=== PATIENT | male | born 1945 | race Caucasian/White ===

== ENCOUNTER 2021-03-08 06:25 | Outpatient (RCR) | payer OTHER, SELFPAY | END 2021-03-17 23:59 | disposition home or self-care (01) | LOC: SPT 06:25 | PROVIDERS: Family Provider Family Medicine; PCP Family Medicine; Referring Provider Physical Medicine & Rehabilitation; Visit Provider Physical Medicine & Rehabilitation | DX: M25.512 Pain in left shoulder (principal); M25.612 Stiffness of left shoulder, not elsewhere classified; G54.0 Brachial plexus disorders; Z98.890 Other specified postprocedural states | CPT/HCPCS: 97110; 97140; 97161 ==

== ENCOUNTER 2021-03-18 06:00 | Outpatient (RCR) | payer OTHER, SELFPAY | END 2021-04-17 23:59 | disposition home or self-care (01) | LOC: SPT 06:00 | PROVIDERS: Family Provider Family Medicine; PCP Family Medicine; Referring Provider Physical Medicine & Rehabilitation; Visit Provider Physical Medicine & Rehabilitation | DX: Z98.890 Other specified postprocedural states (principal); M25.612 Stiffness of left shoulder, not elsewhere classified; G54.0 Brachial plexus disorders | CPT/HCPCS: 97110 ==

== ENCOUNTER → 2022-08-09 14:04 | Outpatient (BNVA) | payer MEDICARE, OTHER, SELFPAY | PROVIDERS: PCP Family Medicine; Visit Provider Family Medicine | DX: R50.9 Fever, unspecified (principal); U07.1 COVID-19 | CPT/HCPCS: 87426 ==

== ENCOUNTER 2023-04-06 20:00 | Outpatient (CLI) | payer OTHER, SELFPAY | END 2023-04-06 20:01 | disposition home or self-care (01) | LOC: SLEEP 04-07 05:34 | PROVIDERS: PCP Clinical Nurse Specialist Adult Health; Visit Provider Family Medicine | DX: G47.33 Obstructive sleep apnea (adult) (pediatric) (principal) | CPT/HCPCS: 95811 ==

== ENCOUNTER 2023-06-16 08:37 | Outpatient (CLI) | payer OTHER, SELFPAY ==
--- NOTE | 2023-06-16 08:50 | FL_ITS ---
WS: [id number] Modified barium swallow, 06/16/2023 Clinical Data: Other dysphagia Comparison: None. Fluoroscopy time: 1min [id number] # of spot films: Findings: The patient ingested the barium and the oral propulsion was normal. There is minimal premature spilla ge. There was a small residue in the vallecula and even less in the piriform sinuses which cleared on swallowing. No aspiration or penetration occurred. The barium tablet was propelled normally from the hypopharynx through the esophagus into the stomach. Impression: Negative modified barium swallow.
== END 2023-06-16 08:38 | disposition home or self-care (01) ==
PROVIDERS: PCP Clinical Nurse Specialist Adult Health; Visit Provider Family Medicine
DX: R13.10 Dysphagia, unspecified (principal)
CPT/HCPCS: 74230; 92611

== ENCOUNTER → 2023-11-22 13:56 | Outpatient (BNVA) | payer OTHER, SELFPAY | PROVIDERS: PCP Clinical Nurse Specialist Adult Health; Referring Provider Family Medicine; Visit Provider Nurse Practitioner Family | DX: L57.0 Actinic keratosis (principal); L30.4 Erythema intertrigo; L60.3 Nail dystrophy; L82.1 Other seborrheic keratosis; L72.0 Epidermal cyst | CPT/HCPCS: 17004; 99214 ==

== ENCOUNTER → 2023-12-06 13:34 | Outpatient (BNVA) | payer OTHER, SELFPAY | PROVIDERS: PCP Clinical Nurse Specialist Adult Health; Visit Provider Podiatrist Foot & Ankle Surgery | DX: L60.8 Other nail disorders | CPT/HCPCS: 99203 ==

== ENCOUNTER → 2024-03-05 08:30 | Outpatient (BNVA) | payer OTHER, SELFPAY | PROVIDERS: PCP Clinical Nurse Specialist Adult Health; Visit Provider Nurse Practitioner Family | DX: D18.01 Hemangioma of skin and subcutaneous tissue (principal); L57.0 Actinic keratosis; D48.5 Neoplasm of uncertain behavior of skin; L57.8 Other skin changes due to chronic exposure to nonionizing radiation | CPT/HCPCS: 11102; 17000; 99213 ==

== ENCOUNTER → 2024-03-13 10:54 | Outpatient (BNVA) | payer OTHER, SELFPAY | PROVIDERS: PCP Clinical Nurse Specialist Adult Health; Referring Provider Family Medicine; Visit Provider Specialist | DX: M25.561 Pain in right knee (principal); L60.8 Other nail disorders; M17.11 Unilateral primary osteoarthritis, right knee; Z68.41 Body mass index [BMI] 40.0-44.9, adult | CPT/HCPCS: 73560; 73565; 99204; 99213 ==

== ENCOUNTER → 2024-07-10 12:05 | Outpatient (BNVA) | payer MEDICARE, OTHER, SELFPAY | PROVIDERS: PCP Clinical Nurse Specialist Adult Health; Visit Provider Specialist | DX: Z01.818 Encounter for other preprocedural examination (principal) | CPT/HCPCS: 36415; 80053; 81001; 85025 ==

== ENCOUNTER → 2024-07-30 08:39 | Outpatient (BNVA) | payer MEDICARE, OTHER, SELFPAY | PROVIDERS: PCP Clinical Nurse Specialist Adult Health; Visit Provider Family Medicine | DX: Z01.818 Encounter for other preprocedural examination (principal) | CPT/HCPCS: 93005 ==

== ENCOUNTER 2024-07-31 16:14 | Outpatient (CLI) | payer OTHER, SELFPAY ==
--- NOTE | 2024-07-31 17:15 | CT_ITS ---
WS: [id number] CT RIGHT knee, noncontrast HISTORY: planning for [facility] RIGHT TOTAL KNEE TECHNIQUE: Protocol for ARLENE total knee replacement has been obtained. This includes axial imaging th rough the RIGHT hip, RIGHT knee and RIGHT ankle. DLP: 953.49 mGy.cm COMPARISON: Radiograph 03/13/2024 Mild narrowing of the RIGHT hip joint. No fractures. No destructive bone lesions. Moderate calcificat ion of the visualized iliac arteries. RIGHT knee: Severe tricompartment joint space narrowing with large marginal osteophytes. Bone upon ena ne in the medial compartment. Large joint effusion. RIGHT ankle: Negative. CT/CT knee RT [facility] [id number] IMPRESSION: CT imaging provided for [facility] robotic total knee replacement.
== END 2024-07-31 16:15 | disposition home or self-care (01) ==
PROVIDERS: PCP Clinical Nurse Specialist Adult Health; Visit Provider Specialist
DX: Z01.818 Encounter for other preprocedural examination (principal); M17.11 Unilateral primary osteoarthritis, right knee; M25.761 Osteophyte, right knee; I70.8 Atherosclerosis of other arteries; M25.461 Effusion, right knee
CPT/HCPCS: 73700

== ENCOUNTER 2024-08-06 10:56 | Observation (INO) | payer OTHER, MEDICARE, SELFPAY ==
--- OUTSIDE RECORDS SUMMARY | 2024-07-24 14:45 | XMS_ITS ---
Author Name Unknown Organization [facility] Address [address] [place] [address] Care Team Providers Care Hospice Fellow Name Role Phone Kenya Hylton MD Primary Care Provider Candice Willett Unavailable [phone] [place], [place] Unavailable Unavailable REASON FOR VISIT colon result Encounters Encounter Location Date Provider Diagnosis [facility] [address] [place] [address] 11/28/2023 Candice Fortune Plan Of Treatment No Information Progress Notes * Jovani GOLDEN RDOB:[birth year] (78 yo M)Acc No.[id number]:11/28/2023 Patient:?Jovani GOLDEN :1945???Age:77 Y???Sex:Male Address:[address] [place] [address] [address], [place] [address] * true * Date:? Generated for Mazin beltran/Bessie/eTransmitting on:?07/24/2024 02:45 PM MULTIPLE WIRE SAWYER
--- OUTSIDE RECORDS SUMMARY | 2024-07-24 14:46 | XMS_ITS ---
Author Name Unknown Organization [facility] Address [address] [place] [address] Care Team Providers Care Computer Hardware Developer Name Role Phone Kenya Hylton MD Primary Care Provider Candice Willett Unavailable [phone] [place], [place] Unavailable Unavailable REASON FOR VISIT R/S colon Encounters Encounter Location Date Provider Diagnosis [facility] [address] [place] [address] 10/10/2023 Candice Fortune Plan Of Treatment No Information Progress Notes * Jovani GOLDEN RDOB:[birth year] (77 yo M)Acc No.[id number]:10/10/2023 Patient:?Jovani Golden :1945???Age:77 Y???Sex:Male Address:[address] [place] [address] [address], [place] [address] * true * Date:? Generated for Mazin beltran/Bessie/eTransmitting on:?07/24/2024 02:46 PM COGNOS DEVELOPER
--- OUTSIDE RECORDS SUMMARY | 2024-07-24 14:46 | XMS_ITS ---
Author Name Unknown Organization [facility] Address [address] [place], [place] [address] Care Team Providers Care Research Clerk Name Role Phone Kenya Hylton MD Primary Care Provider Candice Willett Unavailable [phone] [place], [place] Unavailable Unavailable Allergies Allergen (clinical drug ingredient) Drug/Non Drug Allergy documented on EMR Reaction Allergy Type Onset Date Status amlodipine Amlodipine Unknown Drug Allergy Activ e Substance with sulfonamide structure and antibacterial mechanism of action (substance) Sulfa Antibiotics Unknown Drug Allergy Active REASON FOR VISIT screening colon, hx of colon polyps Medications Medication SIG (Take, Route, Frequency, Duration) Notes Start Date End Date Status Benzonatate 200 MG 1 capsule Orally as needed at night Active Omeprazole 20 MG 1 capsule 30 minutes before morning meal Orally Once a day Active Gabapentin 100 MG as directed Orally 1 tablet in the morning and 2 at night Active Lisinopril 10 MG 1 tablet Orally Once a day Active Rosuvastatin Calcium 20 MG 1/2 tablet Or ally Once a day Active Loratadine 10 MG 1 tablet Orally Once a day Active Aleve 220 MG 1 tablet with food o r milk as needed Orally every 12 hrs Active Vitamin C ER 500 MG 1 tablet Orally Once a day Active Vitamin C-Vitamin D-Zinc - 1 tablet Orally daily Active Social History Tobacco Use: Social History Observation Description Date Details (start date - stop date) Never Smoker NA - NA xTobacco Use/Smoking Question Answer Notes Are you a nonsmoker Encounters Encounter Location Date Provider Diagnosis [facility] [address] [place] [address] 10/19/2023 Candice Fortune Screening for colon cancer Z12.11 Assessments Encounter Date Diagnosis (ICD Code) Assessment Notes Treatment Notes Treatment Clinical Notes 10/19/2023 Screening for colon cancer (ICD-10 - Z12.11) Proceed with high risk screening colonoscopy today. Plan Of Treatment Treatment Notes Assessment Notes Screening for colon cancer Proceed with high risk screening colonoscopy today. Progress Notes * Jovani GOLDEN RDOB:[birth year] (78 yo M)Acc No.[id number]:10/19/2023 History and Physical Patient:?Jovani GOLDEN Provider:?Candice Fortune MD :1945???Age:77 Y???Sex:Male Ravinder e:10/19/2023 Address:[address] [place], [place] [id number] Pcp:Kenya Hylton MD Check Out:08:26 AM MANAGER MOTOR Subjective: * Chief Complaints: * ???1. Screening colon, hx of colon polyps. * HPI: ???::? Mr. Golden is a 77-year-old male patient of Dr. Edmonds presenting today for colonoscopy. Last colonoscopy reportedly in 2018 in [place] with polypectomy and 5-year surveillance. Denies GI complaints. Significant history of father with colon cancer at age 87. * ROS:?General - Multi System:?Constitutional?Denies fever, chills, body aches.?.?Cardiovascular?Denies?chest pain, palpitations or syncope.?Respiratory?Denies shortness of breath.? * Medical History:?Hypertensio n, History of colon polyps, Hyperlipidemia, GERD, Neuropathy. * Surgical History:?tonsillect cory and adenoidectomy 02/1956, left shoulder rotator cuff repair x2 02/2017. * Family History:?Father: dece ased 90 yrs, colon cancer at age 87 myocardial infarction, prostate cancer at age 72.?Mother: 91 yrs, alzheimer's , osteoporosis.? * Social History:?Tobacco Use:?xTobacco Use/Smoking?Are you a?nonsmoker * Medications:?Taking Vitamin C-Vitamin D-Zinc - Tablet 1 tablet Orally daily , Taking Vitamin C ER 500 MG Tablet Extended Release 1 tablet Orally Once a day , Taking Aleve 220 MG Tablet 1 tablet with food or milk as needed Orally every 12 hrs , Taking Loratadine 10 MG Tablet 1 tablet Orally Once a day , Taking Omeprazole 20 MG Capsule Delayed Release 1 capsule 30 minutes before morning meal Orally Once a day , Taking Benzonatate 200 MG Capsule 1 capsule Orally as needed at night , Taking Rosuvastatin Calcium 20 MG Tablet 1/2 tablet Orally Once a day , Taking Lisinopril 10 MG Tablet 1 tablet Orally Once a day , Taking Gabapentin 100 MG Capsule as directed Orally 1 tablet in the morning and 2 at night * Allergies:?Sulfa Antibiotics , Amlodipine. Objective: * Vitals:? * Examination: ???General Examination: ?GENERAL APPEARANCE:?Alert, comfortable, in no acute distress.?HEART:?Regular rate and rhythm..?LUNGS:?Non-labored respirations. Clear bilaterally. Symmetrical..?ABDOMEN:?Normal, Soft, Non-tender, positive bowel sounds.? Assessment: * Assessment: 1.?Screening for colon cance r - Z12.11 (Primary)??? Plan: * Treatment: * Billing Information: * Visit Code:? * Procedure Codes:? * Electronic signature of Jose Fortune MD on 07/24/2024 at 02:45 PM MANAGER MOTOR Sign off status: Pending * Provider:?Candice Fortune MD Date:?0 10/19/2023 Generated for Mazin beltran/Bessie/eTransmitting on:?07/24/2024 02:45 PM MANAGER MOTOR History and Physical Notes * Examination Category Sub-Category Detail Notes General Examination GENERAL APPEARANCE: Alert, c omfortable, in no acute distress HEART: Regular rate and rhy thm. LUNGS: Non-labored respirat ions. Clear bilaterally. Symmetrical. ABDOMEN: Normal, Soft, Non-te nder, positive bowel sounds
--- OUTSIDE RECORDS SUMMARY | 2024-07-24 14:46 | XMS_ITS ---
Author Name JuanVishalley Address [address] [facility] [address] [place] [address] Organization [facility] Address [address] [facility] [address] [place] [address] Care Team Providers Care Roadway Technician Name Role Phone Vishal Martinez Primary Care Physician Vishal Martinez Preferred Provider Allergies and Adverse Reactions Name Reaction Notes SULFA (SULFONAMIDES) amlodipine Medications Active Name Start Date Estimated Completion Date SIG Comments gabapentin 100 mg oral capsule 04/28/2019 tamsulosin 0.4 mg oral capsule 03/20/2019 lisinopril 10 mg oral tablet 02/18/2019 Name Start Date Expiration Date SIG Comments Testosterone Pellet 200 mg 05/22/2019 insert subcutaneousl y q 5-6 months BioTE DIM 06/26/2019 10/24/2019 take one po qd BioTE Mervia 500-SF 06/26/2019 10/24/2019 take 2 capsules qd Discontinued Name Start Date Discontinued Date SIG Comment s CUSTOMS AND BORDER PROTECTION INSPECTOR Thyroid 30 mg oral tablet 05/22/2019 10/15/2019 take 1 tablet (30 mg) by oral route once daily for 30 days Problem List Not available. Vital Signs Date Time BP-Sys(mm[Hg] BP-Adelina(mm[Hg]) HR(bpm) RR(rpm) Temp WT HT HC BMI BSA BMI Percentile O2 Sat(%) 2018 10:06 :00 AM 130 mm[Hg] 80 mm[Hg] 74 {beats}/ min 20 rpm 243 lbs 019 2:17: 00 PM 74 {beats}/ min 16 rpm 233 lbs 67 in 36.4 9 kg/m 2 2.24 m2 2018 9:27: 00 AM 120 mm[Hg] 80 mm[Hg] 227 lbs 67 in 35.5 529 kg/m 2 2.20 62 m2 Social History Name Description Comments Tobacco Never smoker Alcohol Never Use status used: Never History of Procedures Date Ordered Description Order Status 05/02/2019 12:00 AM ASSAY OF ESTRADIOL Reviewed 05/02/2019 12:00 AM ASSAY OF TESTOSTERONE FREE Re viewed 05/02/2019 12:00 AM ASSAY OF TESTOSTERONE TOTAL R eviewed 05/02/2019 12:00 AM ASSAY OF THYROID STIMULATING HORMONE TSH Reviewed 05/02/2019 12:00 AM ASSAY OF THYROXINE TOTAL Revi ewed 05/02/2019 12:00 AM ASSAY OF TRIIODOTHYRONINE T3 FREE Reviewed 05/02/2019 12:00 AM MICROSOMAL ANTIBODIES EACH Re viewed 05/02/2019 12:00 AM COMPREHENSIVE METABOLIC PANEL Reviewed 05/02/2019 12:00 AM 25 HYDROXY INCLUDES FRACTIONS IF PERFORMED Reviewed 05/02/2019 12:00 AM LIPID PANEL Reviewed 05/02/2019 12:00 AM ASSAY OF PROSTATE SPECIFIC AN TIGEN TOTAL Reviewed 05/02/2019 12:00 AM BLOOD COUNT COMPLETE AUTO&AUT O DIFRNTL WBC Reviewed 05/02/2019 12:00 AM CYANOCOBALAMIN VITAMIN B-12 R eviewed 05/22/2019 12:00 AM SUBCUTANEOUS HORMONE PELLET IM PLANTATION Reviewed 06/26/2019 12:00 AM BioTE Meriva 500SF Reviewed 06/26/2019 12:00 AM ASSAY OF ESTRADIOL Reviewed 06/26/2019 12:00 AM BLOOD COUNT COMPLETE AUTO&AUT O DIFRNTL WBC Reviewed 06/26/2019 12:00 AM ASSAY OF TESTOSTERONE FREE Re viewed 06/26/2019 12:00 AM ASSAY OF TESTOSTERONE TOTAL R eviewed 06/26/2019 12:00 AM ASSAY OF PROSTATE SPECIFIC AN TIGEN TOTAL Reviewed Results Summary Date and Description Results 05/02/2019 9:57 AM TRIG 165.0 mg/dLCHOL 244.0 mg/dLLDL CALC 163VLDL 33.0HDL 48RISK 5.08GLUCOSE 98.0 mg/dLBUN 27.0 mg/dLCREAT 0.80 mg/dLNA 140.0 mmol/LK 4.40 mmol/LCL 104.0 mmol/LCO2 25.0 mmol/LCA 9.90 mg/dLANION GAP 11.0BUN/CREAT RATIO 33.70 (calc)OSMO,CALC 285GFR (CKD-EPI) 89.9 mL/minGFR-AFR AM > 120.0TOTAL BILI 0.70 mg/dLAST/SGOT 33 U/LALT/SGPT 35 U/LALK PHOS 66 U/LTP 7.50 g/dLALB 4.60 g/dLGLOB 2.90 g/dLA/G RATIO 1.50 (calc)WBC 7.50 x10E3/uLRBC 4.620 x10E6/uLHGB 15.10 g/dLHCT 45.80 %MCV 99.1MCH 32.70 pgMCHC 33.0 g/dLRDW 13.90 %PLT 228.0 x10E3/uLMPV 9.30 fLNEUT% 64.70 %LYMPH% 22.6 %MONO% 9.20 %EOS% 2.90 %BASO% 0.50 %NEUT# 4.870 x10E3/uLLYMPH# 1.70MONO# 0.70 x10E3/uLEOS# 0.220 x10E3/uLBASO# 0.040 x10E3/uLIMMATURE GRANS% 0.1IMMATURE GRANS# 0.0NRBC/100 WBC 0.0TSH 1.040 uIU/mLB12 728.0 pg/mLTHYROID PEROXIDASE ANTIBODIES 4.0 IU/mLT4 (THYROXINE), TOTAL 7.20 mcg/dLESTRADIOL 35.0 pg/mLPSA, TOTAL 1.20 ng/mLT3, FREE 3.20 pg/mLVITAMIN D,25-OH,TOTAL,IA 35.0 ng/mLTESTOSTERONE, TOTAL, MS 503.0 ng/dLTESTOSTERONE, FREE 60.90 pg/mL 06/26/2019 10:42 AM TESTOSTERONE, TOTAL, MS 992.0 ng/dLTESTOSTERONE, FREE 128.60 pg/mLWBC 7.0 x10E3/uLRBC 4.610 x10E6/uLHGB 14.70 g/dLHCT 47.20 %MCV 102.4MCH 31.90 pgMCHC 31.10 g/dLRDW 14.60 %PLT 231.0 x10E3/uLMPV 9.40 fLNEUT% 55.90 %LYMPH% 26.3 %MONO% 12.90 %EOS% 4.0 %BASO% 0.60 %NEUT# 3.920 x10E3/uLLYMPH# 1.84MONO# 0.90 x10E3/uLEOS# 0.280 x10E3/uLBASO# 0.040 x10E3/uLIMMATURE GRANS% 0.3IMMATURE GRANS# 0.0NRBC/100 WBC 0.0ESTRADIOL 46.0 pg/mL 06/26/2019 11:00 AM PSA, TOTAL 1.10 ng/m L History of Past Illness Name Date of Onset Comments Hypertension Encounter for screening for lipoid disorders May 02 2019 9:33AM Encounter for screening for cardiovascular disor ders May 02 2019 9:33AM Osteoporosis screening May 02 2019 9:33AM Screening for endocrine disorder May 02 2019 9:3 3AM Prostate cancer screening May 02 2019 9:33AM Fatigue May 02 2019 9:33AM bed bug exterminator use of drug May 02 2019 9:33AM Wellness examination May 02 2019 9:33AM Pain in joints May 02 2019 9:33AM Excessive sweating May 02 2019 9:33AM Sleep difficulties May 02 2019 9:33AM Irritability May 02 2019 9:33AM Concentration deficit May 02 2019 9:33AM Decreased muscle strength May 02 2019 9:33AM Hypertension May 02 2019 9:33AM Low serum testosterone May 22 2019 2:17PM Joint pain May 22 2019 2:17PM Fatigue, unspecified type May 22 2019 2:17PM Joint pain Jun 26 2019 10:14AM Low testosterone Jun 26 2019 10:14AM Sleep disturbance Jun 26 2019 10:14AM Decreased energy Jun 26 2019 10:14AM Payers Insurance Name Company Name Plan Name Plan Number Policy Number Policy Group Number Start Date MEDICARE/[employer] MEDICARE [id number] Monday, 2012 [employer] [id number] Sunday, 2017 History of Encounters Visit Date Visit Type Provider 09/13/2019 Supplements Vishal Molina 06/26/2019 Lab Order ONLY Vishal Molina 05/22/2019 BioTE Procedures Vishal Martinez MD 05/02/2019 BioTE Procedures Vishal Martinez MD
--- OUTSIDE RECORDS SUMMARY | 2024-07-24 14:46 | XMS_ITS | Patient Health Record ---
Author Name Unknown Organization [facility] Address [address] [place] [address] Care Team Providers Care Manager Medicare Name Role Phone Kenya Hylton MD Primary Care Provider Karena Candice Heath Unavailable [phone] [place], [place] Unavailable Unavailable Allergies Allergen (clinical drug ingredient) Drug/Non Drug Allergy documented on EMR Reaction Allergy Type Onset Date Status amlodipine Amlodipine Unknown Drug Allergy Activ e Substance with sulfonamide structure and antibacterial mechanism of action (substance) Sulfa Antibiotics Unknown Drug Allergy Active Reason For Referral Reason Screening COLON Referring Provider First Name Lukas Tijerina Referring Provider Last Name [place] Referring Provider [facility] Referred Provider Candice Fortune Referred [facility] [address] [facility] [place] [place] Referred Provider Specialty Gastroentero logy Referral Priority Routine Medications Medication SIG (Take, Route, Frequency, Duration) Notes Start Date End Date Status Benzonatate 200 MG 1 capsule Orally as needed at night Active Omeprazole 20 MG 1 capsule 30 minutes before morning meal Orally Once a day Active Loratadine 10 MG 1 tablet Orally Once a day Active Aleve 220 MG 1 tablet with food o r milk as needed Orally every 12 hrs Active Vitamin C ER 500 MG 1 tablet Orally Once a day Active Vitamin C-Vitamin D-Zinc - 1 tablet Orally daily Active Gabapentin 100 MG as directed Orally 1 tablet in the morning and 2 at night Active Lisinopril 10 MG 1 tablet Orally Once a day Active Rosuvastatin Calcium 20 MG 1/2 tablet Or ally Once a day Active Social History Tobacco Use: Social History Observation Description Date Details (start date - stop date) Never Smoker NA - NA xTobacco Use/Smoking Question Answer Notes Are you a nonsmoker Alcohol Screen (Audit-C) Question Answer Notes Did you have a drink containing alcohol in the p ast year? No Points 0 Interpretation Negative Problems Problem Type SNOMED Code ICD Code Onset Dates Problem Status W/U Status Risk Notes Problem [id number] History of colon polyps (Z86.010) Active confirmed Encounters Encounter Location Date Provider [facility] [address] [place], [place] [address] 10/19/2023 Candice Fortune Screening for colon cancer Z12.11 [facility] [address] [place], [place] [address] 10/10/2023 Candice Fortune [facility] [address] [place] [address] 11/28/2023 Candice Fortune Assessments Encounter Date Diagnosis (ICD Code) Assessment Notes Treatment Notes Treatment Clinical Notes 10/19/2023 Screening for colon cancer (ICD-10 - Z12.11) Proceed with high risk screening colonoscopy today. Plan Of Treatment No Information Insurance Providers Payer Name Payer Address Payer Phone Subscriber Number Group Number Insured Name Patient Relationship to Insured Coverage Start Date Coverage End Date [employer] [address] [place] [phone] [id number] Jovani Golden Self - patient is the insured Medical (General) History Medical History History ICD Code Hypertension History of colon polyps Hyperlipidemia GERD Neuropathy Surgical History Surgery Date(Month/Year) tonsillectomy and adenoidectomy 02/1956 left shoulder rotator cuff repair x2 02/17 017
[2024-08-06] VITALS (13 sets, daily range): BP systolic 115–155; BP diastolic 68–95; PULSE 61–90; RESP 16–20; TEMP 36.2–36.8; O2SAT 90–98; BMI 37.9
[2024-08-06] MEDS: sodium chloride 0.9% 1,000 ML 30 ML IV (06:20)
[2024-08-06] MEDS: acetaminophen 1,000 MG/100 ML PIGGYBACK 400 MG IV ×3 (06:21→20:45)
[2024-08-06] MEDS: CELEcoxib 200 mg Capsule 400 MG PO (06:24)
[2024-08-06] MEDS: gabapentin 300 mg Capsule PO (06:24)
--- NOTE | 2024-08-06 06:50 | P.HPUD_ITS ---
Surgery/Procedure H&P Update DATE OF PROCEDURE: August 06, 2024 DATE H&P PERFORMED: 07/30/24 H&P UPDATE INFORMATION: I have reviewed H&P completed within last 30 days, I have examined patient prior to procedure, No changes to prior documentation and H&P is in [facility] EMR on date indicated PRIMARY INDICATION FOR PROCEDURE: Degenerative osteoarthritis right knee PLANNED PROCEDURE: Operation Date: 08/06/24 07:00 Proposed Procedures p Kartik Robot Total Knee Arthroplasty(Right) - Afshan Sánchez MD Related Problem List Diagnoses (1) Primary osteoarthritis of right knee:
--- NOTE | 2024-08-06 06:53 | PC.NURSE ---
pt prepared for adductor block by placing pt on monitoring for heart rate and O2 sats. pt placed on 2L nasal cannula. time out was performed procedure performed to place block using 30cc 0.5% ropivicaine for post knee replacement pain control
[2024-08-06] MEDS: ceFAZolin 2,000 mg SDV 2000 MG IVP (07:00)
--- NOTE | 2024-08-06 07:03 | ANES.PREANE2 ---
Pre-Anesthetic Assessment Height/Weight: Height 1.7 m Weight 109.769 kg Temp Pulse Resp BP Pulse Ox O2 Del Method 97.2 F L 74 18 148/94 93 Room Air 08/06/24 05:59 08/06/24 05:59 08/06/24 05:59 08/06/24 05:59 08/06/24 05:59 08/06/24 05:59 Operation Date: 08/06/24 07:00 Proposed Procedures p Kartik Robot Total Knee Arthroplasty(Right) - Afshan Sánchez MD Familial anesthetic complications: None Was Beta Mary taken within 24 hours: N/A Was Clonidine taken within 24 hours: N/A Last intake: Intake Last Liquid Date 08/05/24 Last Liquid Time 18:30 Last Solid Date 08/05/24 Last Solid Time 18:30 Social No alcohol and No tobacco Exam alert, oriented x 3, clear to auscultation bilaterally and regular rate & rhythm Pulmonary Sleep Apnea CV/HEM Hypertension Metabolic Hyperlipidemia and Morbid Obesity Anesthetic Plan ASA status: 3 Anesthesia: Regional (specify below) Risk of > 500 ml blood loss (7ml/kg in children): Yes, adequate IV access and fluids planned Medications/Allergies Home Medications Medication Instructions Recorded Confirmed Last Taken Type gabapentin 100 mg capsule See Rx Instructions PO .COMPLEX 12/29/22 08/05/24 07/15/24 Rx #270 caps rosuvastatin 10 mg tablet 10 mg PO DAILY 12/29/22 08/05/24 08/05/24 History tamsulosin 0.4 mg capsule 0.4 mg PO .QHS 12/29/22 08/05/24 08/05/24 History lisinopril 30 mg tablet 30 mg PO DAILY bp #90 tabs 06/25/24 08/05/24 08/05/24 Rx loratadine 10 mg tablet 10 mg PO DAILY 07/30/24 08/05/24 08/05/24 History meloxicam 7.5 mg tablet 7.5 mg PO DAILY 07/30/24 08/05/24 08/01/24 History Allergies Allergy/AdvReac Type Severity Reaction Status Date / Time amlodipine Allergy Unknown Verified 08/05/24 12:58 Sulfa (Sulfonamide Allergy unknown Verified 08/05/24 12:58 Antibiotics) Current Medications Generic Name Dose Route Start Last Admin Trade Name Freq PRN Reason Stop Dose Admin Sodium Chloride 1,000 mls @ 30 mls/hr 08/06/24 06:00 08/06/24 06:20 Sodium Chloride 0.9% IV 08/07/24 05:59 30 mls/hr .Q24H JAIRO Administration PFSH Anesthesia Medical History MACARENA (obstructive sleep apnea) no CPAP yet BPH (benign prostatic hyperplasia) Hyperlipidemia GERD (gastroesophageal reflux disease) Essential hypertension Seasonal allergies Surgical History Hx of shoulder surgery Family History Denies family history of Diabetes CAD (coronary artery disease) Social History Smoking and tobacco/nicotine status: never used tobacco/nicotine Data Anesthesia Cardiac Studies: No Data to Display
--- NOTE | 2024-08-06 07:03 | ANES.PROC ---
Anesthesia Procedures Procedure/Date: 08/06/24 Nerve Block ^: Nerve Block 1: Main Anesthesia: spinal anesthesia block Time Out Performed: Yes Consent: requested by attending/covering physician, from patient, from other, risks and benefits reviewed, patient agrees to proceed and emergency procedure Nerve block location: adductor canal (R) Anesthesia monitors applied: pulse oximetry, EKG, BP cuff and oxygen Nerve block position: supine Anesthetic Used: ropivicaine 0.5% (30 ml) and with decadron (4 mg) Ultrasound used to: recognize landmarks and visualize and ID femerol nerve Nerve Stimulator Used?: No Interscalene/Femoral BLK: 4 stimuplex 21 g needle used for position and inplane approach, visualize local anesthetic spread and no vascular puncture identified Injection: neg aspiration of heme Patient Tolerated Procedure: well Complications: none
[2024-08-06] MEDS: tranexamic acid 1,000 mg/10mL SDV 1000 MG IV (07:40)
[2024-08-06] MEDS: ceFAZolin 1,000 mg SDV 2000 MG IRRIGATION (08:23)
[2024-08-06] MEDS: VANCOMYCIN ADD-Vantage 1,000 MG VIAL 1000 MG XX (08:27)
[2024-08-06] MEDS: BUPivacaine 0.5% INJ 30 mL XX (08:29)
[2024-08-06] MEDS: BUPivacaine liposome 13.3 mg/mL SDV 20 mL 266 MG XX (08:29)
--- NOTE | 2024-08-06 11:17 | XR_ITS ---
WS: [id number] Exam: XR knee RT 1-2V [id number] Date/Time of Exam: 08/06/2024 11:17 AM Reason For Exam: Status post total knee arthroplasty RIGHT total knee prosthesis is in place in satisfactory position. Postoperative changes in the adjace nt soft tissues. XR/XR knee RT 1-2V [id number] IMPRESSION: 1. RIGHT total knee replacement in satisfactory position.
--- NOTE | 2024-08-06 11:20 | PM.OP ---
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 Post-op findings: Significant osteophytes with flexion contracture of approximately 14 degrees and 17 degree varus deformity Procedure done: Right total knee arthroplasty with Kartik guidance Implants: The Shazia total knee system with a size 6 triathlon beaded cruciate retaining femur right, a triathlon titanium tibial component size 6 beaded, a triathlon X3 tibial bearing CS insert size 6x12 mm and a beaded triathlon titanium asymmetric patella size 35 x 10 mm Specimens removed/disposition: Bone, disposed of Pathology: None Surgeon: Afshan Sánchez MD Mender Hand: Rosalinda Haas Mender Hand: Whose services were required for retraction, positioning, intraoperative exposure, and closure Anesthesia: MAC and Spinal (With preoperative adductor block, ASA 3) Estimated blood loss (mL): 330 Tourniquet time (min): 0 (Not utilized) IV fluids (mL): 750 Urine output (mL): 175 Complications: None Findings: Significant varus and flexion contracture. Large osteophytes. Anterior bursitis, prepatellar and prepatellar tendon. Condition: stable Disposition: PACU (Then to floor for postoperative rehabilitation and pain management under observation status) Brief History: This 78-year-old gentleman presented with significant complaints of right knee pain. He had severe varus deformity and flexion contracture as well. After discussion and failure of conservative management, the patient wished to proceed with operative intervention in the form of right total knee arthroplasty. Risks and complications were discussed with him. Consents were signed and questions were answered. Procedure: The patient was brought to the operating theater, and after undergoing spinal anesthesia with MAC, ASA 3, which followed preoperative adductor block, the right lower extremity was prepped with Dura-Prep and draped in usual fashion following placement of a tourniquet high on the leg. The leg was then draped free.? Tourniquet was not elevated throughout the surgical procedure. Prior to commencement of the procedure, a surgical pause was performed, and at the time of the surgical pause, we confirmed the site and side of surgery. Additionally, we confirmed the appropriate and timely administration of preoperative antibiotics, Ancef 2 g.? The availability of equipment was confirmed, and the patient's identity was verbalized as well. Following the surgical pause, an incision was made centering over the patella continuing proximally and distally as necessary to allow access to the knee joint. Dissection continued through skin and soft tissues using a scalpel. Hemostasis was obtained using electrocautery. The skin incision was followed by a median parapatellar arthrotomy. The leg was extended and the patella was able to be displaced laterally.? Appropriate arrays and markers were placed in appropriate position for use of the Kartik.? Preoperative planning had been accomplished and was discussed in detail with the [facility] technical service representative.? Intraoperative mapping of the femur and tibia was accomplished after the arrays were placed.? Internal markers were also placed.? Once we had accomplished the Kartik mapping, we began the appropriate resections for placement of the prosthesis.? The plan was for a cruciate retaining left total knee arthroplasty. Once appropriate mapping had been accomplished retraction was established using manual retraction by surgical technicians and also the Kartik leg positioner and retractors.? The knee was evaluated.? There was significant osteoarthritic change as well as a significant flexion contracture and severe varus deformity.? Appropriate bone resection was accomplished using the Kartik.? The femur was sized to a size 6.? Following femoral cuts, attention was directed to the tibia.? Osteophytes were removed prior to this portion of the procedure.? We had performed a medial release at the beginning of the procedure to allow for placement of the array.? Proximal tibia was evaluated, and it was felt that appropriate size for the tibia was a size 6.? Tray was noted to fit nicely with good coverage.? Rim fit was accomplished with the size 6. A trial reduction was accomplished after osteophytes have been removed as well as the medial and lateral menisci.? We had removed the anterior cruciate ligament at the beginning of the case and preserved the posterior cruciate ligament.? Trial reduction was accomplished with a size 6 femoral cruciate retaining component, a size 6 tibial tray and a size 6 CS tibial bearing insert which was 9 mm. We increased this to a size 11 mm for trial and actual implant was a size 12 mm tibial insert. Alignment was felt to be appropriate as well.? Trial components were removed after the femur had been drilled.? Prior to removal of the tibial tray which had been pinned in position with appropriate rotation as determined by the Kartik plan, we broached the tibia.? Subsequently, the 4 drill holes were made for the prosthetic component.? All trial components were removed, and the wound was irrigated.? Plans were made for insertion of the prosthetic components.? Prior to this, the patella was manually prepared.? After resection of the articular surface with the jogging system, it was measured and measured a 35 mm patella.? We resected approximately 10 mm of patella.? Patellar height was restored with the patellar component. Once again, the wound was irrigated. The Tritanium tibia was impacted into position.? The beaded femur was then impacted into position in a cementless fashion. The CS tibial insert was placed prior to placement of the femoral component. The patella was pressed into position with a patellar clamp.? Exparel was injected about the components deep and superficially.? The knee was then copiously irrigated with betadine and saline and suctioned dry. Attention was then directed to closure. Closure was accomplished with 0 Vicryl in the fascial tissues.? The suture line of 0 Vicryl was supplemented with strata fix, #1, with a running suture from proximal to distal and a second running stitch from distal to proximal.? This was followed by Surgiflo and vancomycin powder.? Following this, a 2-0 Strata Fix was used in the subcutaneous tissues, and the skin was closed with 3-0 Strata fix.? Care was taken to assure an excellent subcutaneous as well as skin closure.? A sterile dressing was then placed consisting of Dermabond Prineo, OpSite, ABD, sterile soft roll, and an Devan wrap including over the foot. The patient was returned the Recovery Room in a satisfactory condition. X-rays were obtained and reviewed there.? The patient will be discharged to the floor for postoperative rehabilitation and pain management. Related Problem List Diagnoses (1) Primary osteoarthritis of right knee: (2) Varus deformity, not elsewhere classified, right knee: (3) Flexion deformity, right knee:
--- NOTE | 2024-08-06 11:35 | ANE.PACU2 ---
Inpatient post-anesthesia follow up: Airway intact: Yes Vital signs: Temperature 97.4 F Pulse Rate 65 Respiratory Rate 16 Blood Pressure 121/72 Pulse Oximetry 97 Oxygen Delivery Me thod Room Air Oxygen Flow Rate 2 Fraction of Inspir ed Oxygen Hydration adequate: Yes Nausea and vomiting: No Pain level: 1 Mental status: Baseline
[2024-08-06] MEDS: tranexamic acid 1,000 MG/100 ML PREMIX 600 MG IV (13:00)
[2024-08-06] MEDS: oxyCODONE 5 mg IR Tab/Cap PO ×3 (13:00→23:22)
[2024-08-06] MEDS: chlorhexidine gluconate 0.12% Btl 473 mL 30 ML MUCOUS MEM ×3 (13:27→20:43)
[2024-08-06] MEDS: mupirocin oint 22 gm 1 APPLIC NASAL (16:48)
[2024-08-06] MEDS: calcium carbonate 500 mg Chew Tablet 1000 MG PO (16:49)
[2024-08-06] MEDS: sennosides-docusate Tablet 2 TAB PO (16:49)
[2024-08-06] MEDS: iron polysaccharide complex 150 mg Capsule PO (16:49)
[2024-08-06] MEDS: gabapentin 100 mg Capsule 200 MG PO (20:44)
[2024-08-06] MEDS: tamsulosin 0.4 mg Capsule PO (20:44)
[2024-08-07] VITALS (7 sets, daily range): BP systolic 94–128; BP diastolic 62–79; PULSE 66–83; RESP 15–18; TEMP 36.4–37.1; O2SAT 92–98
[2024-08-07] MEDS: acetaminophen 1,000 MG/100 ML PIGGYBACK 400 MG IV (05:33)
[2024-08-07] MEDS: gabapentin 100 mg Capsule PO (05:34)
[2024-08-07 06:07] LABS: Basophils % 0.1 %; Eosinophils % 0.1 %; Lymphocytes # 1.2 10^3/uL (0.8-4.8); Lymphocytes % 9.8 %; Mean Corpuscular HGB Conc 33.9 g/dL (30-55); Mean Corpuscular Hemoglobin 32.5 pg (27-33); Mean Corpuscular Volume 95.7 fl (82-101); Mean Platelet Volume 9.4 fL (7.4-10.4); Monocytes # 1.8 10^3/uL (0.2-0.9); Monocytes % 14.9 %; Neutrophils # 8.81 10^3/uL (1.8-7.7); Neutrophils % 74.8 %; Nucleated Red Blood Cells % 0 %; Platelet Count 172 10^3/cmm (157-399); Red Blood Count 3.97 10^6/uL (3.85-5.65); Red Cell Distribution Width 13.8 % (12.1-15.1); White Blood Count 11.79 10^3/uL (3.29-11.43)
[2024-08-07 06:26] LABS: Blood Urea Nitrogen 20 mg/dL (8-23); Calcium 8.3 mg/dL (8.5-10.5); Carbon Dioxide 26 mmol/L (22-29); Chloride 101 mmol/L (98-107); Creatinine Clr Calc Pharmacy 92.7524; Glucose 143 mg/dL (65-115); Osmolality Calculated 291 mOsm/kg (285-295); Sodium 138 mmol/L (136-145)
[2024-08-07 06:33] LABS: Anion Gap 15.2 (5-19); Potassium 4.2 mmol/L (3.5-5.1)
[2024-08-07] MEDS: oxyCODONE 5 mg IR Tab/Cap PO ×2 (08:25→12:19)
[2024-08-07] MEDS: calcium carbonate 500 mg Chew Tablet 1000 MG PO (08:25)
[2024-08-07] MEDS: multivitamin therapeutic Tablet 1 TAB PO (08:25)
[2024-08-07] MEDS: atorvastatin 40 mg Tablet PO (08:25)
[2024-08-07] MEDS: cholecalciferol (vitamin D3) 1,000 unit Tablet 1000 UNIT PO (08:25)
[2024-08-07] MEDS: aspirin 325 mg EC Tablet PO (08:25)
[2024-08-07] MEDS: lisinopril 10 mg Tablet 30 MG PO (08:25)
[2024-08-07] MEDS: chlorhexidine gluconate 0.12% Btl 473 mL 30 ML MUCOUS MEM (08:26)
[2024-08-07] MEDS: iron polysaccharide complex 150 mg Capsule PO (08:26)
[2024-08-07] MEDS: sennosides-docusate Tablet 2 TAB PO (08:26)
[2024-08-07] MEDS: loratadine 10 mg Tablet PO (08:26)
[2024-08-07] MEDS: meloxicam 7.5 mg tablet PO (08:30)
--- NOTE | 2024-08-07 09:58 | PC.CHAP ---
Pastoral Care Encounter/Spiritual Assessment Type of Contact [] Declined mid level game designer visit [] Patient/Family/Request visit [] Outpatient visit [] Follow-up visit [] Physician referral [] Code/Alert [] Routine visit [] Staff referral [] Actively dying [] Patient sleeping [] Family support [] [] Out of room [] Palliative care [] [x] Receiving care in room [] Pre-surgical visit [] Trauma [] Long length of stay [] ICU visit [] Other: Relational/Emotional Strength [] Patient feels connected with others/family/visitors/staff [] Distress [] Loneliness/isolation [] Abandonment Spirituality of Patient [] Person of [place] [] Attends Sikh of their [place] [] Believes in Prayer [] Reads Bible or Pentecostalism materials [] There are Spiritual issues to be addressed Decorating And Assembly Supervisor Interventions [] Prayer [] Active listening [] Non-anxious presence [] Spiritual/emotional support [] Crisis/trauma care [] Spiritual counseling [] Bereavement support [] Provided bereavement packet [] Provided Bible/devotional materials [] Provided toy/stuffed animal, coloring book to patient or family member [] Provided Communion [] Anointing/[place] [] Salvation [] Completed spiritual assessment [] Other: Impact on Illness or Injury [] Angry [] Fearful [] Anxious [] Often cries [] Exhaustion [] Unable to work [] Unable to attend jewish [] Unable to walk/stand [] Unable to read [] Unable to drive [] Unable to eat/drink [] Unable to sleep [] Unable to be with family [] Patient intubated [] Other: Summary Time spent with patient
[2024-08-07] MEDS: acetaminophen 500 mg Tablet 1000 MG PO (11:21)
--- NOTE | 2024-08-07 13:47 | P.DS_ITS ---
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 He had severe varus deformity and flexion contracture as well. After discussion and failure of conservative management, the patient wished to proceed with operative intervention in the form of right total knee arthroplasty. Risks and complications were discussed with him. Consents were signed and questions were answered. Hospital Course Hospital Course Patient was admitted under observation status to the surgical floor for posto perative rehabilitation and pain management as well as physical therapy. The patient tolerated it well. On the first postoperative day, he was independent and up and walking in the noe. Pain was well-managed. There was no evidence of DVT. He was neurologically intact. He was felt safe for discharge to home and will follow-up in the office as previously scheduled. Physical Exam Const: COMMON NORMALS: no acute distress, average body habitus, patient oriented x3 and alert GENERAL APPEARANCE: cooperative and comfortable ORIENTATION/CONSCIOUSNESS: Yes awake HENMT: COMMON NORMALS: normocephalic and atraumatic HEAD & SCALP: normocephalic and atraumatic Eye: GENERAL EYE: appearance normal, both eyes and all related structures Chest: COMMONS NORMALS: normal inspection of the chest Resp: COMMON NORMALS: normal respiratory effort EFFORT & INSPECTION: Yes able to speak in complete sentences and Yes symmetric chest movement Extremity: RIGHT LOWER EXTREMITY: Yes knee joint (Large outer dressing is removed. OpSite is dry and intact.) Right knee: Yes inspection (Minimal swelling and ecchymosis.), Yes palpation (No significant tenderness, no calf tenderness.), Yes ROM (Not evaluated.) and Yes neurovascular exam (Intact distally.) Neuro: COMMON NORMALS: patient oriented x3 SENSORIUM/ORIENTATION: Yes alert Psych: COMMON NORMALS: mental status grossly normal APPEARANCE: Yes grossly normal ATTITUDE: Yes calm and Yes engaged ATTENTION/CONCENTRATION: Yes attention grossly intact Skin: COMMON NORMALS: no rashes or lesions noted GENERAL SKIN EXAM: no rashes or lesions noted Urinary Catheter Management: Stephenson: Cath Placed During This Visit: yes, but has since been removed by the nurse Reason for Continuing Indwelling Catheter: Decision to DC Catheter Urinary Catheter Date of Insertion: 08/06/24 Urinary Catheter Time of Insertion: 07:31 Date Urinary Catheter Removed: 08/07/24 Time Urinary Catheter Discontinued: 06:55 Discharge Data Studies Completed and Pending Completed Studies During Hospitalization Category Date Time Status XR knee RT 1-2V 27221 Urgent Exams 08/06/24 11:17 Completed Radiology Impressions Knee X-Ray 08/06/24 11:17 IMPRESSION: 1. RIGHT total knee replacement in satisfactory position. Laboratory Results WBC 11.79 10^3/uL (3.29-11.43) H 08/07/24 05:39 RBC 3.97 10^6/uL (3.85-5.65) 08/07/24 05:39 Hgb 12.90 g/dL (11.27-16.99) 08/07/24 05:39 Hct 38.0 % (37-53) 08/07/24 05:39 MCV 95.7 fl (82-101) 08/07/24 05:39 MCH 32.5 pg (27-33) 08/07/24 05:39 MCHC 33.9 g/dL (30-55) 08/07/24 05:39 RDW 13.8 % (12.1-15.1) 08/07/24 05:39 Plt Count 172 10^3/cmm (157-399) 08/07/24 05:39 MPV 9.4 fL (7.4-10.4) 08/07/24 05:39 Neut % (Auto) 74.8 % 08/07/24 05:39 Lymph % (Auto) 9.8 % 08/07/24 05:39 [place] % (Auto) 14.9 % 08/07/24 05:39 Eos % (Auto) 0.1 % 08/07/24 05:39 Baso % (Auto) 0.1 % 08/07/24 05:39 Neut # (Auto) 8.81 10^3/uL (1.8-7.7) H 08/07/24 05:39 Lymph # (Auto) 1.2 10^3/uL (0.8-4.8) 08/07/24 05:39 [place] # (Auto) 1.8 10^3/uL (0.2-0.9) H 08/07/24 05:39 Eos # (Auto) 0.0 10^3/uL (0.0-0.8) 08/07/24 05:39 Baso # (Auto) 0.0 10^3/uL (0.0-0.1) 08/07/24 05:39 Nucleated RBC % (auto) 0 % 08/07/24 05:39 Nucleated RBCs # 0.0 /100WBC 08/07/24 05:39 Sodium 138 mmol/L (136-145) 08/07/24 05:39 Potassium 4.2 mmol/L (3.5-5.1) 08/07/24 05:39 Chloride 101 mmol/L (98-107) 08/07/24 05:39 Carbon Dioxide 26 mmol/L (22-29) 08/07/24 05:39 Anion Gap 15.2 (5-19) 08/07/24 05:39 BUN 20 mg/dL (8-23) 08/07/24 05:39 Creatinine 0.8 mg/dL (0.7-1.2) 08/07/24 05:39 GFR Calculation Not Reportable 08/07/24 05:39 Glucose 143 mg/dL (65-115) H 08/07/24 05:39 Calculated Osmolality 291 mOsm/kg (285-295) 08/07/24 05:39 Calcium 8.3 mg/dL (8.5-10.5) L 08/07/24 05:39 Vitals Last Vital Signs Temp 98.1 F 08/07/24 07:26 Pulse 74 08/07/24 11:35 Resp 16 08/07/24 12:19 BP 128/62 08/07/24 11:35 Pulse Ox 98 08/07/24 11:35 O2 Del Method Room Air 08/07/24 11:35 O2 Flow Rate 2 08/06/24 11:36 Discharge Plan Discharge Patient Disposition: Home Health Service Condition: Stable Prescriptions: New acetaminophen 500 mg Tablet 1,000 mg PO Q8H 15 Days Qty: 90 0RF aspirin 325 mg Tablet,Delayed Release (Dr/Ec) 325 mg PO DAILY 30 Days Qty: 30 0RF oxycodone 5 mg Tablet 5 - 10 mg PO Q4H PRN (Reason: Moderate To Severe Pain) 7 Days Qty: 40 0RF Continued gabapentin 100 mg capsule See Rx Instructions PO .COMPLEX Qty: 270 3RF Rx Instructions: 1 capsule in the morning and 2 capsules at night orally; tamsulosin 0.4 mg capsule 0.4 mg PO .QHS Patient Comments: [facility] rosuvastatin 10 mg tablet 10 mg PO DAILY Patient Comments: [facility] to [facility] lisinopril 30 mg tablet 30 mg PO DAILY Qty: 90 3RF meloxicam 7.5 mg tablet 7.5 mg PO DAILY loratadine 10 mg tablet 10 mg PO DAILY Discharge Orders: Discharge Order (Routine); Ordered 08/07/24 Ordered By: Afshan Sánchez Other Ambulatory Orders: DME: Walker (Order) Location: None Selected Ordered By: Afshan Sánchez Referrals: Afshan Sánchez MD [Physician] - 08/19/24 11:15 am Ty Grande NP [Primary Care Provider] - (We have notified your physician's clinic of the need for a follow-up appointment to be scheduled. If you have not heard from them within the next 2 business days, please call them directly. ) Discharge Diet: Advance as tolerated and Usual diet Discharge Activity: Increase activity as tolerated, Limit activity as instructed, Use walker/crutches as instructed and As per PT/OT instructions Patient Instructions: Aspirin (By mouth), Oxycodone, Rapid Release (By mouth), Acute Wound Care (DC), Total Knee Replacement (GEN), Opioid Safety, Post Anesthesia Care Activity Restrictions/Additional Instructions: Ice to right knee. Range of motion and strengthening per physical therapy. Gait training per PT as well. Elevation. Weightbearing as tolerated. Discharge Attestations Time Spent in Discharge Care*: greater than 30 min Specific Discharge Activities: educating patient, educating and/or supporting family/caregiver, documenting/other paperwork and evaluating patient/reviewing data Quality Metrics Clinical Quality Measures [ No reported AMI, CVA or VTE this stay] Coding Level of Care Code Acute Code for Chg Fwd Diagnoses Primary osteoarthritis of right knee M17.11 Varus deformity, not elsewhere classified, right knee M21.161 Flexion deformity, right knee M21.261 Status post total right knee replacement not using cement Z96.651
--- NOTE | 2024-08-07 14:30 | PC.NURSE ---
Discharge Note Patient discharged to home via private vehicle accompanied by sons. Discharge instructions reviewed with patient and/or sales representative gas service. Mobile pharmacy medications and/or prescriptions provided. Belongings/home medications returned.
== END 2024-08-07 14:34 | disposition home health service (06) ==
LOC: MEDSURG 10:56
PROVIDERS: Admitting Provider Specialist; PCP Clinical Nurse Specialist Adult Health; Visit Provider Specialist
PROC: 8E0Y0CZ Robotic Assisted Procedure of Lower Extremity, Open Approach (ICD-10-PCS; CPT 27447; principal; 2024-08-06 07:00)
DX: M17.11 Unilateral primary osteoarthritis, right knee (principal); M24.561 Contracture, right knee; M21.161 Varus deformity, not elsewhere classified, right knee; I10 Essential (primary) hypertension; E78.5 Hyperlipidemia, unspecified; E66.01 Morbid (severe) obesity due to excess calories; Z68.37 Body mass index [BMI] 37.0-37.9, adult; G47.33 Obstructive sleep apnea (adult) (pediatric); N40.0 Benign prostatic hyperplasia without lower urinary tract symptoms; K21.9 Gastro-esophageal reflux disease without esophagitis
CPT/HCPCS: 27447; 20985; 36415; 51702; 73560; 73562; 80048; 85025; 97110; 97116; 97161; 97165; C1776; C9290; G0378; J0131; J0690; J1100; J2371; J2704; J2795; J3010; J3370; J3490; J7030

== ENCOUNTER → 2024-08-19 11:00 | Outpatient (BNVA) | payer OTHER, SELFPAY | PROVIDERS: PCP Clinical Nurse Specialist Adult Health; Visit Provider Specialist | DX: Z96.651 Presence of right artificial knee joint (principal); M21.261 Flexion deformity, right knee; M17.11 Unilateral primary osteoarthritis, right knee | CPT/HCPCS: 73560; 73565; 99024 ==

== ENCOUNTER → 2024-08-26 12:31 | Outpatient (BNVA) | payer OTHER, SELFPAY | PROVIDERS: PCP Clinical Nurse Specialist Adult Health; Visit Provider Specialist | DX: Z96.651 Presence of right artificial knee joint (principal); M17.11 Unilateral primary osteoarthritis, right knee; M21.261 Flexion deformity, right knee; M21.161 Varus deformity, not elsewhere classified, right knee | CPT/HCPCS: 99024 ==

== ENCOUNTER → 2024-09-04 08:02 | Outpatient (BNVA) | payer OTHER, SELFPAY | PROVIDERS: PCP Clinical Nurse Specialist Adult Health; Visit Provider Nurse Practitioner Family | DX: L72.0 Epidermal cyst (principal); L82.1 Other seborrheic keratosis; D22.5 Melanocytic nevi of trunk; L81.4 Other melanin hyperpigmentation; L57.8 Other skin changes due to chronic exposure to nonionizing radiation; D48.5 Neoplasm of uncertain behavior of skin; L57.0 Actinic keratosis | CPT/HCPCS: 11102; 17000; 99213 ==

== ENCOUNTER → 2024-10-07 11:31 | Outpatient (BNVA) | payer OTHER, SELFPAY | PROVIDERS: PCP Clinical Nurse Specialist Adult Health; Visit Provider Specialist | DX: Z96.651 Presence of right artificial knee joint (principal); Z98.890 Other specified postprocedural states; M17.11 Unilateral primary osteoarthritis, right knee; M21.261 Flexion deformity, right knee; M21.161 Varus deformity, not elsewhere classified, right knee | CPT/HCPCS: 73560; 73565; 99024 ==

== ENCOUNTER → 2024-10-10 13:33 | Outpatient (BNVA) | payer MEDICARE, OTHER, SELFPAY | PROVIDERS: PCP Clinical Nurse Specialist Adult Health; Visit Provider Family Medicine | DX: I10 Essential (primary) hypertension (principal); E78.00 Pure hypercholesterolemia, unspecified; R53.83 Other fatigue; E03.9 Hypothyroidism, unspecified | CPT/HCPCS: 80053; 80061; 82607; 84443; 85025 ==

== ENCOUNTER → 2024-10-30 12:43 | Outpatient (BNVA) | payer MEDICARE, OTHER, SELFPAY | PROVIDERS: PCP Clinical Nurse Specialist Adult Health; Visit Provider Nurse Practitioner | DX: M17.12 Unilateral primary osteoarthritis, left knee (principal); M21.162 Varus deformity, not elsewhere classified, left knee | CPT/HCPCS: 73560; 73565; 99214 ==

== ENCOUNTER 2024-11-07 13:21 | Outpatient (CLI) | payer OTHER, SELFPAY ==
--- NOTE | 2024-11-07 14:00 | CT_ITS ---
WS: [id number] CT LEFT knee, noncontrast HISTORY: left knee pain TECHNIQUE: Protocol for ARLENE total knee replacement has been obtained. This includes axial imaging through the LEFT hip, LEFT knee and LEFT ankle. DLP: 1657.22 mGy.cm COMPARISON: Radiograph 10/30/2024 LEFT hip: Degenerative air in the SI joints. Mild narrowing of the hip joint. No fracture or destructive process. Vascular calcification in the iliac arteries. LEFT knee: Moderate tricompartment osteoarthritis. Osteophytes along the joint spaces. Asymmetric narrowing of the patellofemoral articulation with lateral subluxation. No destructive bone lesion. Moderate vascular calcifications. Small suprapatellar joint effusion. LEFT ankle: Negative. CT/CT knee [facility] [id number] IMPRESSION: CT imaging provided for [facility] robotic total knee replacement.
== END 2024-11-07 13:22 | disposition home or self-care (01) ==
PROVIDERS: PCP Family Medicine; Visit Provider Nurse Practitioner
DX: M25.562 Pain in left knee (principal); M46.1 Sacroiliitis, not elsewhere classified; M16.12 Unilateral primary osteoarthritis, left hip; I70.8 Atherosclerosis of other arteries; M17.12 Unilateral primary osteoarthritis, left knee; M25.762 Osteophyte, left knee; R93.6 Abnormal findings on diagnostic imaging of limbs
CPT/HCPCS: 73700

== ENCOUNTER → 2024-11-22 09:37 | Outpatient (BNVA) | payer MEDICARE, OTHER, SELFPAY | PROVIDERS: PCP Family Medicine; Visit Provider Family Medicine | DX: Z01.818 Encounter for other preprocedural examination (principal) | CPT/HCPCS: 80048; 81003; 85007; 85027 ==

== ENCOUNTER 2024-12-03 12:00 | Observation (INO) | payer OTHER, MEDICARE, SELFPAY ==
[2024-12-03] VITALS (25 sets, daily range): BP systolic 116–162; BP diastolic 70–102; PULSE 75–94; RESP 13–22; TEMP 36.4–37.3; O2SAT 87–98
[2024-12-03] MEDS: CELEcoxib 200 mg Capsule 400 MG PO (06:42)
[2024-12-03] MEDS: gabapentin 300 mg Capsule PO (06:42)
[2024-12-03] MEDS: sodium chloride 0.9% 1,000 ML 30 ML IV (06:48)
[2024-12-03] MEDS: acetaminophen 1,000 MG/100 ML PIGGYBACK 400 MG IV ×3 (06:50→23:36)
--- NOTE | 2024-12-03 07:02 | W.PM.OPSUD ---
Surgery/Procedure H&P Update DATE OF PROCEDURE: December 03, 2024 DATE H&P PERFORMED: 11/22/24 H&P UPDATE INFORMATION: I have reviewed H&P completed within last 30 days, I have examined patient prior to procedure, No changes to prior documentation and H&P is in [facility] EMR on date indicated PREOP DIAGNOSIS: DJD Left Knee PLANNED PROCEDURE: Operation Date: 12/03/24 07:50 Proposed Procedures p Kartik Robot Total Knee Arthroplasty(Left) - Afshan Sánchez MD Related Problem List Diagnoses (1) Primary osteoarthritis of left knee:
--- NOTE | 2024-12-03 07:07 | ANES.PREANE2 ---
Pre-Anesthetic Assessment Height/Weight: Height 1.7 m Weight 116.573 kg Temp Pulse Resp BP Pulse Ox O2 Del Method 97.5 F L 75 16 140/91 94 Room Air 12/03/24 06:23 12/03/24 06:23 12/03/24 06:23 12/03/24 06:23 12/03/24 06:23 12/03/24 06:23 Preop Diagnosis: DJD Left Knee Operation Date: 12/03/24 07:50 Proposed Procedures p Kartik Robot Total Knee Arthroplasty(Left) - Afshan Sánchez MD Familial anesthetic complications: None Was Beta Mary taken within 24 hours: N/A Was Clonidine taken within 24 hours: N/A Last intake: Intake Last Liquid Date 12/02/24 Last Liquid Time 21:00 Last Solid Date 12/02/24 Last Solid Time 21:00 Social No alcohol and No tobacco Exam alert, oriented x 3, clear to auscultation bilaterally and regular rate & rhythm Airway Mallampati: Class IV Dentition: full Pulmonary Sleep Apnea CV/HEM Hypertension Metabolic Hyperlipidemia and Morbid Obesity Anesthetic Plan ASA status: 3 Anesthesia: Regional (specify below) Other: Spinal Risk of > 500 ml blood loss (7ml/kg in children): No Medications/Allergies Home Medications ?Medication ?Instructions ?Recorded ?Confirmed ?Last Taken ?Type rosuvastatin 10 mg tablet 10 mg PO DAILY 12/29/22 12/03/24 12/01/24 History tamsulosin 0.4 mg capsule 0.4 mg PO .QHS 12/29/22 12/03/24 12/01/24 History loratadine 10 mg tablet 10 mg PO DAILY 07/30/24 12/03/24 12/02/24 History meloxicam 7.5 mg tablet 7.5 mg PO DAILY 07/30/24 12/03/24 11/22/24 History valsartan 160 1 tab PO DAILY BP #90 tabs 10/31/24 12/03/24 12/02/24 Rx mg-hydrochlorothiazide 12.5 mg tablet Allergies Allergy/AdvReac Type Severity Reaction Status Date / Time amlodipine Allergy Unknown Verified 11/22/24 09:25 Sulfa (Sulfonamide Allergy unknown Verified 11/22/24 09:25 Antibiotics) Current Medications Generic Name Dose Route Start Last Admin Trade Name Freq PRN Reason Stop Dose Admin Sodium Chloride 1,000 mls @ 30 mls/hr 12/03/24 06:15 12/03/24 06:48 Sodium Chloride 0.9% IV 12/04/24 06:14 30 mls/hr .Q24H JAIRO Administration PFSH Anesthesia Medical History MACARENA (obstructive sleep apnea) no CPAP yet BPH (benign prostatic hyperplasia) Hyperlipidemia GERD (gastroesophageal reflux disease) Essential hypertension Seasonal allergies Surgical History Hx of shoulder surgery Family History Denies family history of Diabetes CAD (coronary artery disease) Social History Smoking and tobacco/nicotine status: never used tobacco/nicotine Data Anesthesia Cardiac Studies: No Data to Display
[2024-12-03] MEDS: ceFAZolin 2,000 mg SDV 2000 MG IVP ×3 (08:04→23:35)
[2024-12-03] MEDS: tranexamic acid 1,000 mg/10mL SDV 1000 MG IV (08:49)
[2024-12-03] MEDS: BUPivacaine 0.5% INJ 30 mL 20 ML XX (09:26)
[2024-12-03] MEDS: BUPivacaine liposome 13.3 mg/mL SDV 20 mL 266 MG INFILTRATI (09:26)
[2024-12-03] MEDS: ceFAZolin 1,000 mg SDV 2000 MG IRRIGATION (09:28)
[2024-12-03] MEDS: VANCOMYCIN ADD-Vantage 1,000 MG VIAL 1000 MG XX (09:30)
--- NOTE | 2024-12-03 12:09 | XRR_ITS ---
PROCEDURE INFORMATION: Exam: XR Left Knee Exam date and time: 12/03/2024 11:10 AM Age: 78 years old Clinical indication: Device placement; Joint replacement hardware; Prior surgery; Surgery date: Post-operative (0-2 days); Surgery type: Status post left total knee arthroplasty TECHNIQUE: Imaging protocol: Radiologic exam of the left knee. Views: 1 or 2 views. COMPARISON: CT knee LT [facility] [id number] 11/07/2024 1:51 PM FINDINGS: Bones/joints: Total knee replacement. Anatomic alignment. Bone and metal are intact. Intra-articular and periarticular gas is present. Soft tissues: Normal. XR/XR knee LT 1-2V [id number] IMPRESSION: Postoperative findings.
[2024-12-03] MEDS: fentaNYL 50 mcg/mL INJ 2mL IVP (12:34)
--- NOTE | 2024-12-03 12:48 | PM.OP ---
Operative Report Date of procedure: December 03, 2024 Pre-op diagnosis: Primary osteoarthritis left knee Post-op diagnosis: Primary osteoarthritis left knee Post-op findings: Severe degenerative osteoarthritis left knee with large osteophytes, flexion contracture, and varus deformity Procedure done: Left total knee arthroplasty with Kartik guidance Implants: The [place] total knee system with a size 6 triathlon beaded cruciate retaining femur left, a triathlon titanium tibial component size 6 beaded, a triathlon X3 tibial bearing CS insert size 6 X 10 mm and a beaded triathlon titanium asymmetric patella size 35 x 10 mm Specimens removed/disposition: Bone, disposed of Pathology: None Surgeon: Afshan Sánchez MD Filtering Machine Tender: Rosalinda Haas, nurse practitioner who services were required for retraction, exposure, closure, and completion of the surgical procedure Anesthesia: General (Intubated, ASA 3 after attempted spinal) Estimated blood loss (mL): 850 Tourniquet time (min): 0 (Not utilized) IV fluids (mL): 1,700 Urine output (mL): 100 Complications: None Findings: Significant degenerative osteoarthritis of the left knee with large osteophytes, varus deformity, and flexion contracture Condition: stable Disposition: PACU (Then to floor for postoperative rehabilitation and pain management under observation status) Brief History: This 78-year-old gentleman presented for left total knee arthroplasty. Previously, in July 2024, he underwent right total knee arthroplasty and has done very well following this. The patient presented to the clinic wishing to proceed with left total knee arthroplasty. Risks and complications were again discussed with him. He had varus deformity as well as a flexion contracture in the left knee as well. Consents were signed and questions were answered. Procedure: The patient was brought to the operating theater, and after undergoing general anesthesia, intubated, ASA 3, which was well-tolerated, the left lower extremity was prepped with Dura-Prep and draped in usual fashion following placement of a tourniquet high on the leg. The leg was then draped free.? Tourniquet was not elevated throughout the surgical procedure. Prior to commencement of the procedure, a surgical pause was performed, and at the time of the surgical pause, we confirmed the site and side of surgery. Additionally, we confirmed the appropriate and timely administration of preoperative antibiotics, Ancef 2 g.? The availability of equipment was confirmed, and the patient's identity was verbalized as well. Following the surgical pause, an incision was made centering over the patella continuing proximally and distally as necessary to allow access to the knee joint. Dissection continued through skin and soft tissues using a scalpel. Hemostasis was obtained using electrocautery. The skin incision was followed by a median parapatellar arthrotomy. The leg was extended and the patella was able to be displaced laterally.? Appropriate arrays and markers were placed in appropriate position for use of the Kartik.? Preoperative planning had been accomplished and was discussed in detail with the [facility] customer care representative.? Intraoperative mapping of the femur and tibia was accomplished after the arrays were placed.? Internal markers were also placed.? Once we had accomplished the Kartik mapping, we began the appropriate resections for placement of the prosthesis.? The plan was for a cruciate retaining left total knee arthroplasty. Retraction was established using manual retraction by surgical technicians and also the Kartik leg positioner and retractors.? The knee was evaluated.? There was significant osteoarthritic change as well as a significant flexion contracture and severe varus deformity.? Appropriate bone resection was accomplished using the Kartik.? The femur was sized to a size 6.? Initial resection was accomplished on the tibia followed by appropriate resections on the femur. We had performed a medial release at the beginning of the procedure to allow for placement of the array. Proximal tibia was evaluated and it was felt that appropriate size for the tibia was a size 6.? Tray was noted to fit nicely with good coverage.? Rim fit was accomplished with the size 6. A trial reduction was accomplished after osteophytes have been removed as well as the medial and lateral menisci.? We had removed the anterior cruciate ligament at the beginning of the case and preserved the posterior cruciate ligament.? Trial reduction was accomplished with a size 6 femoral cruciate retaining component, a size 6 tibial tray and a size 6 CS tibial bearing insert which was 9 mm. We increased this to a size 11 mm for the actual implant. Alignment was felt to be appropriate as well.? Trial components were removed after the femur had been drilled.? Prior to removal of the tibial tray which had been pinned in position with appropriate rotation as determined by the Kartik plan, we broached the tibia.? Subsequently, the 4 drill holes were made for the prosthetic component.? All trial components were removed, and the wound was irrigated.? Plans were made for insertion of the prosthetic components.? Prior to this, the patella was manually prepared.? After resection of the articular surface with the jogging system, it was measured and measured a 35 mm patella.? We resected approximately 10 mm of patella.? Patellar height was restored with the patellar component. Once again, the wound was irrigated. The Tritanium tibia was impacted into position.? The beaded femur was then impacted into position in a cementless fashion. The CS tibial insert was placed prior to placement of the femoral component. The patella was pressed into position with a patellar clamp.? Exparel was injected about the components deep and superficially.? The knee was then copiously irrigated with betadine and saline and suctioned dry. Attention was then directed to closure. Closure was accomplished with 0 Vicryl in the fascial tissues.? The suture line of 0 Vicryl was supplemented with strata fix, #1, with a running suture from proximal to distal and a second running stitch from distal to proximal.? This was followed by Surgiflo and vancomycin powder.? Following this, a 2-0 Strata Fix was used in the subcutaneous tissues, and the skin was closed with 3-0 Strata fix.? Care was taken to assure an excellent subcutaneous as well as skin closure.? A sterile dressing was then placed consisting of Dermabond Prineo, OpSite, ABD, sterile soft roll, and an Devan wrap including over the foot. The patient was returned the Recovery Room in a satisfactory condition. X-rays were obtained and reviewed there.? The patient will be discharged to the floor for postoperative rehabilitation and pain management. Related Problem List Diagnoses (1) Primary osteoarthritis of left knee: (2) Acquired varus deformity of knee: (3) Flexion contracture of left knee:
--- NOTE | 2024-12-03 13:10 | ANE.PACU2 ---
Inpatient post-anesthesia follow up: Airway intact: Yes Vital signs: Temperature 97.9 F Pulse Rate 84 Respiratory Rate 16 Blood Pressure 145/92 Pulse Oximetry 94 Oxygen Delivery Me thod Nasal Cannula Oxygen Flow Rate 2 Fraction of Inspir ed Oxygen Hydration adequate: Yes Nausea and vomiting: No Pain level: 1 Mental status: Baseline
[2024-12-03] MEDS: oxyCODONE 5 mg IR Tab/Cap PO ×3 (14:10→22:15)
[2024-12-03] MEDS: CELEcoxib 200 mg Capsule PO (14:10)
[2024-12-03] MEDS: mupirocin oint 22 gm 1 APPLIC NASAL (17:53)
[2024-12-03] MEDS: iron polysaccharide complex 150 mg Capsule PO (17:53)
[2024-12-03] MEDS: calcium carbonate 500 mg Chew Tablet 1000 MG PO (17:53)
[2024-12-03] MEDS: sennosides-docusate Tablet 2 TAB PO (17:53)
[2024-12-03] MEDS: tranexamic acid 1,000 MG/100 ML PREMIX 600 MG IV (17:57)
[2024-12-03] MEDS: chlorhexidine gluconate 0.12% Btl 473 mL 30 ML MUCOUS MEM ×2 (17:57→21:40)
[2024-12-03] MEDS: atorvastatin 40 mg Tablet PO (21:39)
[2024-12-04] MEDS: CELEcoxib 200 mg Capsule PO (02:44)
[2024-12-04 04:00] VITALS: BP 131/72; PULSE 78; RESP 17; TEMP 36.8; O2SAT 93
[2024-12-04 05:39] LABS: Basophils % 0.2 %; Hematocrit 33.8 % (37-53); Lymphocytes # 1.5 10^3/uL (0.8-4.8); Lymphocytes % 9.9 %; Mean Corpuscular HGB Conc 32.8 g/dL (30-55); Mean Corpuscular Hemoglobin 31.2 pg (27-33); Mean Corpuscular Volume 94.9 fl (82-101); Mean Platelet Volume 9.9 fL (7.4-10.4); Monocytes # 2.1 10^3/uL (0.2-0.9); Monocytes % 14.4 %; Neutrophils # 11.05 10^3/uL (1.8-7.7); Neutrophils % 75.1 %; Nucleated Red Blood Cells % 0 %; Platelet Count 227 10^3/cmm (157-399); Red Blood Count 3.56 10^6/uL (3.85-5.65); Red Cell Distribution Width 13.6 % (12.1-15.1)
[2024-12-04 06:08] LABS: Anion Gap 16.1 (5-19); Blood Urea Nitrogen 23 mg/dL (8-23); Calcium 8.6 mg/dL (8.5-10.5); Carbon Dioxide 23 mmol/L (22-29); Chloride 103 mmol/L (98-107); Creatinine Clr Calc Pharmacy 96.9253; Glucose 130 mg/dL (65-115); Osmolality Calculated 291 mOsm/kg (285-295); Potassium 4.1 mmol/L (3.5-5.1); Sodium 138 mmol/L (136-145)
[2024-12-04] MEDS: acetaminophen 1,000 MG/100 ML PIGGYBACK 400 MG IV (06:34)
[2024-12-04 07:54] VITALS: BP 138/80; PULSE 74; RESP 16; TEMP 37.2; O2SAT 92
[2024-12-04] MEDS: cholecalciferol (vitamin D3) 1,000 unit Tablet 1000 UNIT PO (08:51)
[2024-12-04 08:52] VITALS: RESP 16
[2024-12-04] MEDS: iron polysaccharide complex 150 mg Capsule PO (08:52)
[2024-12-04] MEDS: calcium carbonate 500 mg Chew Tablet 1000 MG PO (08:52)
[2024-12-04] MEDS: oxyCODONE 5 mg IR Tab/Cap PO (08:52)
[2024-12-04] MEDS: meloxicam 7.5 mg tablet PO (08:52)
[2024-12-04 08:53] VITALS: BP 138/80
[2024-12-04] MEDS: losartan 50 mg Tablet PO (08:53)
[2024-12-04] MEDS: loratadine 10 mg Tablet PO (08:53)
[2024-12-04] MEDS: sennosides-docusate Tablet 2 TAB PO (08:53)
[2024-12-04] MEDS: aspirin 325 mg EC Tablet PO (08:53)
[2024-12-04] MEDS: hydroCHLOROthiazide 25 mg Tablet 12.5 MG PO (08:53)
[2024-12-04] MEDS: multivitamin therapeutic Tablet 1 TAB PO (08:54)
[2024-12-04] MEDS: ceFAZolin 2,000 mg SDV 2000 MG IVP (08:54)
--- NOTE | 2024-12-04 09:45 | PC.CHAP ---
Pastoral Care Encounter/Spiritual Assessment Type of Contact [] Declined gun synchronizer visit [] Patient/Family/Request visit [] Outpatient visit [] Follow-up visit [] Physician referral [] Code/Alert [x] Routine visit [] Staff referral [] Actively dying [] Patient sleeping [] Family support [] [] Out of room [] Palliative care [] [] Receiving care in room [] Pre-surgical visit [] Trauma [] Long length of stay [] ICU visit [] Other: Relational/Emotional Strength [x] Patient feels connected with others/family/visitors/staff [] Distress [] Loneliness/isolation [] Abandonment Spirituality of Patient [x] Person of Tiara [] Attends Scientologist of their Tiara [x] Believes in Prayer [] Reads Bible or Moravian materials [] There are Spiritual issues to be addressed Steward Dishwasher Interventions [x] Prayer [x] Active listening [] Non-anxious presence [x] Spiritual/emotional support [] Crisis/trauma care [] Spiritual counseling [] Bereavement support [] Provided bereavement packet [] Provided Bible/devotional materials [] Provided toy/stuffed animal, coloring book to patient or family member [] Provided Communion [] Anointing/Ong [] Salvation [x] Completed spiritual assessment [] Other: Impact on Illness or Injury [] Angry [] Fearful [] Anxious [] Often cries [] Exhaustion [] Unable to work [] Unable to attend congregation [] Unable to walk/stand [] Unable to read [] Unable to drive [] Unable to eat/drink [] Unable to sleep [] Unable to be with family [] Patient intubated [] Other: Summary Time spent with patient 5 min
[2024-12-04 11:31] VITALS: BP 145/78; PULSE 79; RESP 16; TEMP 36.6; O2SAT 94
--- NOTE | 2024-12-04 13:10 | PM.DCS ---
Discharge Providers Date of Admission: 12/03/24 12:00 Date of Discharge: December 04, 2024 Attending Provider at Admission: Afshan Sánchez MD Attending Provider at Discharge: Afshan Sánchez MD Primary Care Provider: Trey Anthony DO Diagnoses at Discharge Discharge Diagnosis (1) Status post total left knee replacement not using cement: Status: Acute Permanent problem details: Date of procedure: December 03, 2024 Diagnosis: Primary osteoarthritis left knee Procedure done: Left total knee arthroplasty with Kartik guidance Implants: The [place] total knee system with a size 6 triathlon beaded cruciate retaining femur left, a triathlon titanium tibial component size 6 beaded, a triathlon X3 tibial bearing CS insert size 6 X 10 mm and a beaded triathlon titanium asymmetric patella size 35 x 10 mm (2) Primary osteoarthritis of left knee: Status: Chronic (3) Acquired varus deformity of knee: Status: Chronic Qualifiers: Laterality: left Qualified Code(s): M21.162 - Varus deformity, not elsewhere classified, left knee (4) Flexion contracture of left knee: Status: Acute Reason for Visit Reason for Visit: M17.12 Brief History: This 78-year-old gentleman presented for left total knee arthroplasty. Previously, in July 2024, he underwent right total knee arthroplasty and has done very well following this. The patient presented to the clinic wishing to proceed with left total knee arthroplasty. Risks and complications were again discussed with him. He had varus deformity as well as a flexion contracture in the left knee as well. Consents were signed and questions were answered. Hospital Course Hospital Course Patient was admitted under observation status overnight for physical therapy and pain management. He worked with physical therapy the following day. He did quite well. He was felt to be safe for discharge to home. He was seen and evaluated. His dressing was removed. There was no evidence of DVT. Dressing was dry and intact. Plans were made for his discharge home to follow-up with us in the office. He will receive home physical therapy. Physical Exam Const: COMMON NORMALS: no acute distress, average body habitus, patient oriented x3 and alert GENERAL APPEARANCE: cooperative and comfortable ORIENTATION/CONSCIOUSNESS: Yes awake HENMT: COMMON NORMALS: normocephalic and atraumatic HEAD & SCALP: normocephalic and atraumatic Eye: GENERAL EYE: appearance normal, both eyes and all related structures Chest: COMMONS NORMALS: normal inspection of the chest Resp: COMMON NORMALS: normal respiratory effort EFFORT & INSPECTION: Yes able to speak in complete sentences and Yes symmetric chest movement Extremity: LEFT LOWER EXTREMITY: Yes knee joint (No evidence of DVT, minimal ecchymosis) Left knee: Yes palpation (Minimal tenderness), Yes ROM (Not evaluated) and Yes neurovascular exam (Intact distally) Neuro: COMMON NORMALS: patient oriented x3 SENSORIUM/ORIENTATION: Yes alert Psych: COMMON NORMALS: mental status grossly normal APPEARANCE: Yes grossly normal ATTITUDE: Yes calm and Yes engaged ATTENTION/CONCENTRATION: Yes attention grossly intact Skin: COMMON NORMALS: no rashes or lesions noted GENERAL SKIN EXAM: no rashes or lesions noted Urinary Catheter Management: Stephenson: Cath Placed During This Visit: yes, but has since been removed by the nurse Reason for Continuing Indwelling Catheter: Other Urinary Catheter Date of Insertion: 12/03/24 Urinary Catheter Time of Insertion: 08:40 Date Urinary Catheter Removed: 12/04/24 Time Urinary Catheter Discontinued: 06:00 Discharge Data Studies Completed and Pending Completed Studies During Hospitalization Category Date Time Status XR knee LT 1-2V 30116 Routine Exams 12/03/24 12:09 Completed Radiology Impressions Knee X-Ray 12/03/24 12:09 IMPRESSION: Postoperative findings. Laboratory Results WBC 14.70 10^3/uL (3.29-11.43) H 12/04/24 04:20 RBC 3.56 10^6/uL (3.85-5.65) L 12/04/24 04:20 Hgb 11.10 g/dL (11.27-16.99) L 12/04/24 04:20 Hct 33.8 % (37-53) L 12/04/24 04:20 MCV 94.9 fl (82-101) 12/04/24 04:20 MCH 31.2 pg (27-33) 12/04/24 04:20 MCHC 32.8 g/dL (30-55) 12/04/24 04:20 RDW 13.6 % (12.1-15.1) 12/04/24 04:20 Plt Count 227 10^3/cmm (157-399) 12/04/24 04:20 MPV 9.9 fL (7.4-10.4) 12/04/24 04:20 Neut % (Auto) 75.1 % 12/04/24 04:20 Lymph % (Auto) 9.9 % 12/04/24 04:20 Blanco % (Auto) 14.4 % 12/04/24 04:20 Eos % (Auto) 0.0 % 12/04/24 04:20 Baso % (Auto) 0.2 % 12/04/24 04:20 Neut # (Auto) 11.05 10^3/uL (1.8-7.7) H 12/04/24 04:20 Lymph # (Auto) 1.5 10^3/uL (0.8-4.8) 12/04/24 04:20 Blanco # (Auto) 2.1 10^3/uL (0.2-0.9) H 12/04/24 04:20 Eos # (Auto) 0.0 10^3/uL (0.0-0.8) 12/04/24 04:20 Baso # (Auto) 0.0 10^3/uL (0.0-0.1) 12/04/24 04:20 Nucleated RBC % (auto) 0 % 12/04/24 04:20 Nucleated RBCs # 0.0 /100WBC 12/04/24 04:20 Sodium 138 mmol/L (136-145) 12/04/24 04:20 Potassium 4.1 mmol/L (3.5-5.1) 12/04/24 04:20 Chloride 103 mmol/L (98-107) 12/04/24 04:20 Carbon Dioxide 23 mmol/L (22-29) 12/04/24 04:20 Anion Gap 16.1 (5-19) 12/04/24 04:20 BUN 23 mg/dL (8-23) 12/04/24 04:20 Creatinine 0.8 mg/dL (0.7-1.2) 12/04/24 04:20 GFR Calculation Not Reportable 12/04/24 04:20 Glucose 130 mg/dL (65-115) H 12/04/24 04:20 Calculated Osmolality 291 mOsm/kg (285-295) 12/04/24 04:20 Calcium 8.6 mg/dL (8.5-10.5) 12/04/24 04:20 Vitals Last Vital Signs Temp 97.8 F 12/04/24 11:31 Pulse 79 12/04/24 11:31 Resp 16 12/04/24 11:31 BP 145/78 12/04/24 11:31 Pulse Ox 94 12/04/24 11:31 O2 Del Method Room Air 12/04/24 11:31 O2 Flow Rate 2 12/03/24 13:34 Discharge Plan Discharge Patient Disposition: Home Health Service Condition: Stable Prescriptions: New acetaminophen 500 mg Tablet 1,000 mg PO Q8H 15 Days Qty: 90 0RF aspirin 325 mg Tablet,Delayed Release (Dr/Ec) 325 mg PO DAILY 30 Days Qty: 90 0RF oxycodone 5 mg Tablet 5 - 10 mg PO Q4H PRN (Reason: Moderate Pain) 7 Days Qty: 40 0RF Continued tamsulosin 0.4 mg capsule 0.4 mg PO .QHS Patient Comments: [facility] rosuvastatin 10 mg tablet 10 mg PO DAILY Patient Comments: [facility] to [facility] meloxicam 7.5 mg tablet 7.5 mg PO DAILY loratadine 10 mg tablet 10 mg PO DAILY valsartan-hydrochlorothiazide 160-12.5 mg tablet 1 tab PO DAILY Qty: 90 1RF Discharge Orders: Discharge Order (Routine); Ordered 12/04/24 Ordered By: Afshan Sánchez Referrals: [facility], [facility] [Outside] Afshan Sánchez MD [Physician] - 12/18/24 9:45 am Discharge Diet: Advance as tolerated and Usual diet Discharge Activity: Increase activity as tolerated, Use walker/crutches as instructed and As per PT/OT instructions Patient Instructions: Oxycodone/Acetaminophen (By mouth) (Percocet), Aspirin (By mouth), Acute Wound Care (DC), Total Knee Replacement (DC), Opioid Safety, Post Anesthesia Care Activity Restrictions/Additional Instructions: Ice and elevation to left knee. Your large outer wrap will come off before your discharge, but maintain the dressing that is against the skin until it comes off on its own or begins to leak. You may shower, but do not soak your knee in water of any sort. Weight-bear as tolerated. Home physical therapy for ambulation, gait training, and range of motion. Discharge Attestations Time Spent in Discharge Care*: greater than 30 min Specific Discharge Activities: educating patient, documenting/other paperwork and evaluating patient/reviewing data Quality Metrics Clinical Quality Measures [ No reported AMI, CVA or VTE this stay] Coding Level of Care Code Acute Code for Chg Fwd Diagnoses Status post total left knee replacement not using cement Z96.652 Primary osteoarthritis of left knee M17.12 Acquired genu varum of left lower extremity M21.162 Laterality: left Flexion contracture of left knee M24.562
[2024-12-04 13:39] VITALS: BP 145/78; PULSE 79; RESP 16; TEMP 36.6; O2SAT 94
== END 2024-12-04 13:35 | disposition home health service (06) ==
LOC: MEDSURG 12:00
PROVIDERS: Admitting Provider Specialist; PCP Family Medicine; Visit Provider Specialist
PROC: 8E0Y0CZ Robotic Assisted Procedure of Lower Extremity, Open Approach (ICD-10-PCS; CPT 27447; principal; 2024-12-03 07:50)
DX: M17.12 Unilateral primary osteoarthritis, left knee (principal); M21.162 Varus deformity, not elsewhere classified, left knee; M24.562 Contracture, left knee; M25.762 Osteophyte, left knee; Z96.651 Presence of right artificial knee joint; I10 Essential (primary) hypertension; G47.33 Obstructive sleep apnea (adult) (pediatric); E66.01 Morbid (severe) obesity due to excess calories; Z68.41 Body mass index [BMI] 40.0-44.9, adult; E78.5 Hyperlipidemia, unspecified; N40.0 Benign prostatic hyperplasia without lower urinary tract symptoms
CPT/HCPCS: 27447; 20985; 36415; 51702; 73560; 80048; 85025; 97110; 97116; 97161; 97165; 97530; A4216; C1776; C9290; G0378; J0131; J0690; J1100; J1171; J2371; J2405; J2704; J2795; J3010; J3370; J3490; J7030; J9999

== ENCOUNTER → 2024-12-16 13:43 | Outpatient (BNVA) | payer OTHER, SELFPAY | PROVIDERS: PCP Family Medicine; Visit Provider Nurse Practitioner | DX: Z98.890 Other specified postprocedural states (principal); Z96.652 Presence of left artificial knee joint | CPT/HCPCS: 73560; 73565; 99024 ==

== ENCOUNTER → 2025-01-13 14:05 | Outpatient (BNVA) | payer OTHER, SELFPAY | PROVIDERS: PCP Family Medicine; Visit Provider Nurse Practitioner | DX: Z98.890 Other specified postprocedural states (principal); Z96.652 Presence of left artificial knee joint | CPT/HCPCS: 73560; 73565; 99024 ==

== ENCOUNTER → 2025-01-27 09:01 | Outpatient (BNVA) | payer OTHER, SELFPAY | PROVIDERS: PCP Family Medicine; Visit Provider Specialist | DX: M17.11 Unilateral primary osteoarthritis, right knee (principal); M25.561 Pain in right knee | CPT/HCPCS: 73560; 73565; 99213 ==

== ENCOUNTER → 2025-02-17 10:56 | Outpatient (BNVA) | payer OTHER, SELFPAY | PROVIDERS: PCP Family Medicine; Visit Provider Nurse Practitioner | DX: T85.692A Other mechanical complication of permanent sutures, initial encounter (principal); X58.XXXA Exposure to other specified factors, initial encounter; Z96.651 Presence of right artificial knee joint | CPT/HCPCS: 36415; 73560; 73565; 85025; 87070; 87075; 87077; 87186; 87205; 99214 ==

== ENCOUNTER → 2025-02-21 12:44 | Outpatient (BNVA) | payer OTHER, SELFPAY | PROVIDERS: PCP Family Medicine; Visit Provider Nurse Practitioner | DX: Z96.652 Presence of left artificial knee joint (principal); T81.41XA Infection following a procedure, superficial incisional surgical site, initial encounter; X58.XXXA Exposure to other specified factors, initial encounter | CPT/HCPCS: 73560; 73565; 99214 ==

== ENCOUNTER 2025-02-24 11:11 | Day surgery (SDC) | payer OTHER, SELFPAY ==
[2025-02-24] VITALS (10 sets, daily range): BP systolic 148–169; BP diastolic 86–109; PULSE 62–74; RESP 12–18; TEMP 36.1–36.8; O2SAT 95–98; BMI 38.9
[2025-02-24] MEDS: gabapentin 300 mg Capsule PO (12:07)
[2025-02-24] MEDS: CELEcoxib 200 mg Capsule 400 MG PO (12:07)
[2025-02-24] MEDS: sodium chloride 0.9% 1,000 ML 30 ML IV (12:10)
[2025-02-24] MEDS: acetaminophen 1,000 MG/100 ML PIGGYBACK 400 MG IV (12:15)
--- NOTE | 2025-02-24 13:58 | ANES.PREANE2 ---
Pre-Anesthetic Assessment Height/Weight: Height 1.7 m Weight 112.945 kg Temp Pulse Resp BP Pulse Ox O2 Del Method 98.2 F 74 18 156/87 95 Room Air 02/24/25 11:37 02/24/25 11:37 02/24/25 11:37 02/24/25 11:37 02/24/25 11:37 02/24/25 11:51 Operation Date: 02/24/25 16:25 Proposed Procedures p LEFT Knee Debridement And Irrigation(Left) - Afshan Sánchez MD Familial anesthetic complications: None Was Beta Mary taken within 24 hours: N/A Was Clonidine taken within 24 hours: N/A Last intake: Intake Last Liquid Date 02/24/25 Last Liquid Time 03:30 Last Solid Date 02/23/25 Last Solid Time 20:00 Social No alcohol and No tobacco Exam alert, oriented x 3, clear to auscultation bilaterally and regular rate & rhythm Airway Mallampati: Class III Dentition: full Pulmonary Sleep Apnea CV/HEM Hypertension GI Gastroesophageal Reflux Disease Anesthetic Plan ASA status: 3 Anesthesia: General Risk of > 500 ml blood loss (7ml/kg in children): No Medications/Allergies Home Medications ?Medication ?Instructions ?Recorded ?Confirmed ?Last Taken ?Type rosuvastatin 10 mg tablet 10 mg PO DAILY 12/29/22 02/24/25 02/23/25 History tamsulosin 0.4 mg capsule 0.4 mg PO .QHS 12/29/22 02/24/25 02/23/25 History loratadine 10 mg tablet 10 mg PO DAILY 07/30/24 02/24/25 02/23/25 History meloxicam 7.5 mg tablet 7.5 mg PO DAILY 07/30/24 02/24/25 02/23/25 History valsartan 160 1 tab PO DAILY BP #90 tabs 10/31/24 02/24/25 02/23/25 Rx mg-hydrochlorothiazide 12.5 mg tablet cephalexin 500 mg capsule 500 mg PO QID 7 days #28 caps 02/17/25 02/24/25 02/24/25 Rx Allergies Allergy/AdvReac Type Severity Reaction Status Date / Time amlodipine Allergy ALGY-Hives Verified 02/24/25 11:45 Sulfa (Sulfonamide Allergy unknown Verified 02/21/25 12:48 Antibiotics) Current Medications Generic Name Dose Route Start Last Admin Trade Name Freq PRN Reason Stop Dose Admin Sodium Chloride 1,000 mls @ 30 mls/hr 02/24/25 11:45 02/24/25 12:10 Sodium Chloride 0.9% IV 02/25/25 11:44 30 mls/hr .Q24H JAIRO Administration PFSH Anesthesia Medical History Postoperative stitch abscess MACARENA (obstructive sleep apnea) no CPAP yet BPH (benign prostatic hyperplasia) Hyperlipidemia GERD (gastroesophageal reflux disease) Essential hypertension Seasonal allergies Surgical History Status post total right knee replacement not using cement Date of procedure: August 06, 2024 Diagnosis: Primary osteoarthritis right knee with varus deformity and flexion contracture Procedure done: Right total knee arthroplasty with Kartik guidance Implants: The [place] total knee system with a size 6 triathlon beaded cruciate retaining femur right, a triathlon titanium tibial component size 6 beaded, a triathlon X3 tibial bearing CS insert size 6x12 mm and a beaded triathlon titanium asymmetric patella size 35 x 10 mm Status post total left knee replacement not using cement Date of procedure: December 03, 2024 Diagnosis: Primary osteoarthritis left knee Procedure done: Left total knee arthroplasty with Kartik guidance Implants: The [place] total knee system with a size 6 triathlon beaded cruciate retaining femur left, a triathlon titanium tibial component size 6 beaded, a triathlon X3 tibial bearing CS insert size 6 X 10 mm and a beaded triathlon titanium asymmetric patella size 35 x 10 mm Hx of shoulder surgery Family History Denies family history of Diabetes CAD (coronary artery disease) Social History Smoking and tobacco/nicotine status: never used tobacco/nicotine
[2025-02-24] MEDS: ceFAZolin 3,000 MG in sodium chloride 0.9% (100 ml) 100 ML 200 MG IV ×2 (15:24→16:18)
--- NOTE | 2025-02-24 15:25 | W.PM.OPSUD ---
Surgery/Procedure H&P Update DATE OF PROCEDURE: February 24, 2025 DATE H&P PERFORMED: 02/21/25 H&P UPDATE INFORMATION: I have reviewed H&P completed within last 30 days, I have examined patient prior to procedure, No changes to prior documentation and H&P is in [facility] EMR on date indicated PREOP DIAGNOSIS: Dehiscence left knee wound PLANNED PROCEDURE: Operation Date: 02/24/25 16:25 Proposed Procedures p LEFT Knee Debridement And Irrigation(Left) - Afshan Sánchez MD Related Problem List Diagnoses (1) Dehiscence of external surgical wound: Qualifiers: Encounter type: initial encounter Qualified Code(s): T81.31XA - Disruption of external operation (surgical) wound, not elsewhere classified, initial encounter (2) Postoperative stitch abscess:
[2025-02-24] MEDS: ceFAZolin 1,000 mg SDV 1000 MG IRRIGATION (16:31)
--- NOTE | 2025-02-24 17:11 | PM.OP ---
Operative Report Date of procedure: February 24, 2025 Pre-op diagnosis: Left knee suture abscess with wound dehiscence distal knee incision Post-op diagnosis: Left knee suture abscess with wound dehiscence distal knee incision Post-op findings: No obvious penetration of the knee joint from the distal wound dehiscence Procedure done: 1) Left knee irrigation and debridement of wound dehiscence with excision of skin and soft tissue including subcutaneous tissue around distal knee incision 2) Aspiration left knee Implants: None Specimens removed/disposition: Left knee aspirate of joint fluid sent for cell count with differential as well as aerobic and anaerobic culture and Gram stain. Also, Synovasure kit sent. Pathology: None Surgeon: Afshan Sánchez MD Lead Electrical Controls Engineer: Rosalinda Haas, nurse practitioner, whose services were required for retraction, closure, and completion of the surgical procedure Anesthesia: General (Per LMA, ASA 3) Estimated blood loss (mL): 20 Tourniquet time (min): 25 (At 250 mmHg) IV fluids (mL): 700 Urine output (mL): 0 (No Stephenson) Complications: None Findings: Distal left total knee wound incision dehiscence with suture abscess. No obvious entry into the knee joint. Fluid obtained from the knee joint appeared clear with no signs of purulence. Condition: stable Disposition: PACU (Then return to same-day surgery for discharge to home) Brief History: This 79-year-old gentleman presents today following total knee arthroplasty with date of surgery December 03, 2024. When the patient was seen by me in the office in mid January, he had a superficial suture that was palpable at the distal aspect of the wound. This was removed, there was no drainage, and the patient was advised to follow-up for his normal postoperative visit. The patient then presented to the office on February 21 saying that he had had some drainage from the area. He had been prescribed cephalexin. He denied pain, he had no fever, and laboratory results were essentially unremarkable. Decision was made to proceed with surgical intervention. We discussed with the patient that the plan would be excision of the dehisced area. We would irrigate and debride the area as appropriate and evaluate for violation of the knee joint. Additionally, prior to any work with the wound dehiscence, a separate prep was made of the knee superior lateral aspect to allow aspiration. The knee was aspirated for approximately 30 cc of clear fluid without obvious purulence. Patient was seen preoperatively. Questions were asked and answered. Consents have been previously signed. Procedure: Patient was brought to the operating theater and after undergoing adequate general anesthesia per LMA, ASA 3, the patient's left lower extremity was prepped and draped in usual fashion utilizing DuraPrep. A tourniquet was placed high on the leg prior to prepping and draping. This was not elevated until after incision was made. The area was slightly hyperemic, so the tourniquet was elevated without exsanguination. Total tourniquet time was 25 minutes at 250 mmHg. Prior to beginning the surgical procedure, surgical pause was performed. At the time of the surgical pause, we identified the site and side of surgery. We also confirm the patient's identity and appropriate and timely administration of preoperative antibiotics. The antibiotics were to be held until after intraoperative cultures were obtained. Once these were obtained, the patient was given Ancef 3 g. Preoperative surgical markings were also visualized at this time. Initially, an additional prep was made to the superior lateral corner of the patella. We were able to aspirate approximately 30 cc of fluid that did not appear purulent from within the knee joint separate from the area of wound dehiscence. This was sent for culture and sensitivity, both aerobic and anaerobic, as well as Gram stain. Following this, attention was directed to the area of the wound dehiscence. The skin in this area was ellipsed to remove the areas of dehiscence. These did not appear to be associated with sutures. After this area was ellipsed the soft tissue in the area was further debrided sharply as well as with rongeurs. Cultures were obtained in the area of the wound dehiscence after this area had been excised. The wound was slightly irrigated and then cultures were obtained. The irrigation did not have antibiotic. Palpation was accomplished medially and laterally to see whether or not there was violation into the knee joint. There was no obvious violation into the knee joint. The prosthesis was not visualized. Therefore, we irrigated the wound with 3 L of normal saline with Ancef. Following this, attention was directed to closure. Closure was accomplished with 2-0 Vicryl in the subcutaneous tissues. The area was noted to be quite tight. The skin was closed with skin quynh. This was also supplemented with Dermabond and Steri-Strips. Further dressing was accomplished with OpSite, ABD, Devan wrap and a knee immobilizer. The patient was returned to Recovery Room in satisfactory condition where he will be discharged home to follow-up with me in the office as scheduled. There were no complications. Related Problem List Diagnoses (1) Dehiscence of external surgical wound: (2) Postoperative stitch abscess:
[2025-02-24 17:36] LABS: Apprearance, Body Fluid CLOUDY; Color, Body Fluid RED
[2025-02-24 17:37] LABS: Fluid Laterality SYNOVIAL FLUID; PATH Referral YES
[2025-02-24 17:40] LABS: Body Fluid Polynuclear #Cells 0.037; Body Fluid WBC 143 /uL; Monocytes # Body Fluid 0.106
[2025-02-24] MEDS: HYDROcodone-acetaminophen 5-325 mg Tablet 1 TAB PO (17:52)
--- NOTE | 2025-02-24 18:20 | ANE.PACU2 ---
Inpatient post-anesthesia follow up: Airway intact: Yes Vital signs: Temperature 97 F Pulse Rate 66 Respiratory Rate 18 Blood Pressure 163/92 Pulse Oximetry 96 Oxygen Delivery Me thod Room Air Oxygen Flow Rate Fraction of Inspir ed Oxygen Hydration adequate: Yes Nausea and vomiting: No Pain level: 1 Mental status: Baseline
== END 2025-02-24 18:16 | disposition home or self-care (01) ==
PROVIDERS: PCP Family Medicine; Visit Provider Specialist
PROC: (CPT 11042; principal; 2025-02-24 16:15)
DX: T81.41XA Infection following a procedure, superficial incisional surgical site, initial encounter (principal); L02.416 Cutaneous abscess of left lower limb; T81.31XA Disruption of external operation (surgical) wound, not elsewhere classified, initial encounter; Y79.3 Surgical instruments, materials and orthopedic devices (including sutures) associated with adverse incidents; E78.5 Hyperlipidemia, unspecified; G47.33 Obstructive sleep apnea (adult) (pediatric); Z96.652 Presence of left artificial knee joint; I10 Essential (primary) hypertension; K21.9 Gastro-esophageal reflux disease without esophagitis; Z79.899 Other long term (current) drug therapy; Z88.2 Allergy status to sulfonamides; Z88.8 Allergy status to other drugs, medicaments and biological substances; Z96.653 Presence of artificial knee joint, bilateral
CPT/HCPCS: 11042; 20610; 80503; 87070; 87075; 87077; 87186; 87205; 89050; J0131; J0690; J1100; J2405; J2704; J3010; J7030; J9999

== ENCOUNTER → 2025-02-26 15:27 | Outpatient (BNVA) | payer OTHER, SELFPAY | PROVIDERS: PCP Family Medicine; Visit Provider Nurse Practitioner | DX: Z98.890 Other specified postprocedural states (principal); Z96.652 Presence of left artificial knee joint | CPT/HCPCS: 99024 ==

== ENCOUNTER → 2025-03-10 14:16 | Outpatient (BNVA) | payer OTHER, SELFPAY | PROVIDERS: PCP Family Medicine; Visit Provider Nurse Practitioner | DX: Z98.890 Other specified postprocedural states (principal); Z96.652 Presence of left artificial knee joint | CPT/HCPCS: 99213 ==

== ENCOUNTER → 2025-03-24 14:06 | Outpatient (BNVA) | payer OTHER, SELFPAY | PROVIDERS: PCP Family Medicine; Visit Provider Nurse Practitioner | DX: Z98.890 Other specified postprocedural states (principal); T81.41XA Infection following a procedure, superficial incisional surgical site, initial encounter; Z96.652 Presence of left artificial knee joint; Y83.8 Other surgical procedures as the cause of abnormal reaction of the patient, or of later complication, without mention of misadventure at the time of the procedure | CPT/HCPCS: 73560; 73565; 99214 ==

== ENCOUNTER → 2025-04-18 10:36 | Outpatient (BNVA) | payer MEDICARE, OTHER, SELFPAY | PROVIDERS: PCP Family Medicine; Visit Provider Nurse Practitioner | DX: Z98.890 Other specified postprocedural states (principal); T81.41XA Infection following a procedure, superficial incisional surgical site, initial encounter; Z96.652 Presence of left artificial knee joint; X58.XXXA Exposure to other specified factors, initial encounter | CPT/HCPCS: 99024; 99213 ==

== ENCOUNTER → 2025-04-23 08:03 | Outpatient (BNVA) | payer MEDICARE, OTHER, SELFPAY | PROVIDERS: PCP Family Medicine; Visit Provider Nurse Practitioner Family | DX: L21.8 Other seborrheic dermatitis (principal); L73.8 Other specified follicular disorders; L81.4 Other melanin hyperpigmentation; L57.8 Other skin changes due to chronic exposure to nonionizing radiation; D22.39 Melanocytic nevi of other parts of face; L57.0 Actinic keratosis | CPT/HCPCS: 17000; 99214 ==

== ENCOUNTER → 2025-05-09 10:32 | Outpatient (BNVA) | payer MEDICARE, OTHER, SELFPAY | PROVIDERS: PCP Family Medicine; Visit Provider Nurse Practitioner | DX: Z98.890 Other specified postprocedural states (principal); T81.31XD Disruption of external operation (surgical) wound, not elsewhere classified, subsequent encounter; Z96.652 Presence of left artificial knee joint; X58.XXXD Exposure to other specified factors, subsequent encounter | CPT/HCPCS: 99213 ==

== ENCOUNTER → 2025-05-15 08:00 | Outpatient (BNVA) | payer MEDICARE, OTHER, SELFPAY | PROVIDERS: PCP Family Medicine; Visit Provider Thoracic Surgery (Cardiothoracic Vascular Surgery) | DX: I96 Gangrene, not elsewhere classified (principal); T81.31XD Disruption of external operation (surgical) wound, not elsewhere classified, subsequent encounter; Y83.8 Other surgical procedures as the cause of abnormal reaction of the patient, or of later complication, without mention of misadventure at the time of the procedure | CPT/HCPCS: 87070; 87176; 87205; 97597 ==

== ENCOUNTER → 2025-05-22 08:01 | Outpatient (BNVA) | payer MEDICARE, OTHER, SELFPAY | PROVIDERS: PCP Family Medicine; Visit Provider Thoracic Surgery (Cardiothoracic Vascular Surgery) | DX: I96 Gangrene, not elsewhere classified (principal); T81.31XD Disruption of external operation (surgical) wound, not elsewhere classified, subsequent encounter; Y83.8 Other surgical procedures as the cause of abnormal reaction of the patient, or of later complication, without mention of misadventure at the time of the procedure | CPT/HCPCS: 97597 ==

== ENCOUNTER → 2025-05-29 08:11 | Outpatient (BNVA) | payer MEDICARE, OTHER, SELFPAY | PROVIDERS: PCP Family Medicine; Visit Provider Thoracic Surgery (Cardiothoracic Vascular Surgery) | DX: I96 Gangrene, not elsewhere classified (principal); T81.31XD Disruption of external operation (surgical) wound, not elsewhere classified, subsequent encounter; Y83.8 Other surgical procedures as the cause of abnormal reaction of the patient, or of later complication, without mention of misadventure at the time of the procedure | CPT/HCPCS: 97597; A6021 ==

== ENCOUNTER → 2025-06-05 07:57 | Outpatient (BNVA) | payer MEDICARE, OTHER, SELFPAY | PROVIDERS: PCP Family Medicine; Visit Provider Thoracic Surgery (Cardiothoracic Vascular Surgery) | DX: I96 Gangrene, not elsewhere classified (principal); T81.31XD Disruption of external operation (surgical) wound, not elsewhere classified, subsequent encounter; Y83.8 Other surgical procedures as the cause of abnormal reaction of the patient, or of later complication, without mention of misadventure at the time of the procedure | CPT/HCPCS: 97597; A6197 ==

== ENCOUNTER → 2025-06-12 08:01 | Outpatient (BNVA) | payer MEDICARE, OTHER, SELFPAY | PROVIDERS: PCP Family Medicine; Visit Provider Thoracic Surgery (Cardiothoracic Vascular Surgery) | DX: I96 Gangrene, not elsewhere classified (principal); T81.31XD Disruption of external operation (surgical) wound, not elsewhere classified, subsequent encounter; Y83.8 Other surgical procedures as the cause of abnormal reaction of the patient, or of later complication, without mention of misadventure at the time of the procedure | CPT/HCPCS: 97597; A6021; A6212 ==

== ENCOUNTER → 2025-08-11 08:22 | Outpatient (BNVA) | payer MEDICARE, OTHER, SELFPAY | PROVIDERS: PCP Family Medicine; Visit Provider Nurse Practitioner | DX: Z47.89 Encounter for other orthopedic aftercare (principal); Z96.651 Presence of right artificial knee joint; Z96.652 Presence of left artificial knee joint | CPT/HCPCS: 73560; 73565 ==